=== PATIENT | male | born 1960 | race Hispanic/Latino ===

== ENCOUNTER 2019-08-28 09:59 | Day surgery (SDC) | payer BC ==
--- NOTE | 2019-08-25 14:30 | RAD REPORT ---
EXAM DESCRIPTION: Mario Sena And Reese (2 Views)08/25/2019 2:08 pm CLINICAL HISTORY: Preop for cardiac catheterization COMPARISON: None FINDINGS: The lungs appear clear of acute infiltrate. The heart is normal size Postsurgical changes involve the chest. IMPRESSION: No acute abnormalities displayed
[2019-08-25 14:42] LABS: Potassium 3.9 mmol/L (3.5-5.1)
[2019-08-25 14:48] LABS: Absolute Lymphocytes (CBC) 2.8 K/uL (0.7-4.9); Basophils % 0.9 % (0-1.3); Hematocrit 46.6 % (39.6-49.0); Lymphocytes % 34.1 % (15.3-44.8); RBC Red Blood Cell Count 5.43 M/uL (4.33-5.43)
[2019-08-25 15:32] LABS: Protime INR 0.92
[2019-08-28] MEDS ORDERED: NA CHLORIDE 0.9% 500 ML ONE (10:56)
[2019-08-28] MEDS ORDERED: ACETYLCYST 20% 800 MG/4 ML VIAL PO ONE (11:00)
[2019-08-28 11:57] VITALS: TEMP 97.2
[2019-08-28] MEDS ORDERED: HEPA 1000U/500MLS 2,000 UNIT/1,000 ML BAG IV ONE (12:08)
[2019-08-28] MEDS ORDERED: MIDAZOLAM HCL 2 MG/2 ML INJ ONE (12:09)
[2019-08-28] MEDS ORDERED: HEPARIN 5000 UNIT/ML 1 ML VIAL ONE (12:09)
[2019-08-28] MEDS ORDERED: ATROPINE SULF 1 MG/10 ML SYR IV ONE (12:10)
[2019-08-28] MEDS ORDERED: NICARDIPINE HCL 25 MG/10 ML IV ONE (12:10)
[2019-08-28] MEDS ORDERED: FENTANYL CITR 100 MCG/2 ML ONE (12:10)
--- OUTSIDE RECORDS SUMMARY | 2019-08-28 14:03 | XMS REPORT | Continuity of Care Document ---
:1960 Author Organization [facility] t Address [address] [place] [address] [address] [place] [address] Care Team Providers Name Role Phone Unavailable Unavailable Unavailable Payers Payer Name Policy Type Policy Number Effective Date Expiration Date S ource Problems This patient has no known problems. Allergies, Adverse Reactions, Alerts Allergy Allergy Status Severity Reaction(s) Onset Inactive Treating Comm ents Source Name Type Date Date Clinician No Known DA Active U 2010-03 [facility] Allergie 04-26 Clear s 00:00: [address] Medications This patient has no known medications. Procedures This patient has no known procedures. Results Test Description Test Time Test Comments Results Result Comments Source SURG 2018-07-27 12:56:00 --------RUN DATE: 07/27/18 [facility] - LAB *LIVE* PAGE 1 RUN TIME: 8366 Specimen Inquiry RUN USER: INTERFACE --------PATIENT: JAGDISH CHRISTENSEN V LOC: Messi U #: [id number] AGE/SX: 58/M ROOM: [facility] RE07/22/18REG DR: Tr Nj MD : 64 BED: 1 DIS: 07/23/18 STATUS: DIS Lexi TLOC: -------- SPEC #: [id number] RECD: 07/26/18 STATUS: SERA REQ #: [id number] PIOTR: 07/23/[address] [facility] [address]: Tr Nj MD ENTERED: 07/26/18 SP TYPE: SURG OTHR DR: No Primary or Family Physician Self Referred Surinder Montalvo MDORDERED: SURG PATH LVL 3 COPIES TO: No Primary [place] [address] [place] [address] [email or web address] [address] [address] [place] [address] HISTOLOGY: TISSUE ID BLK PCS MEGHNA LEV PROCEDURE DISPOSITION ____ ___ ___ ___ GALLBLADDER, NO A 1-2 1 PROCEDURES: SURG PATH LVL 3 (07/26/18) TISSUES: A. GALLBLADDER, NOS - GALLBLADDER CLINICAL HISTORY ABD PAIN CPT CODES CPT CODE(S): 02261 , , , , , , CONTINUED ON NEXT PAGE --------RUN DATE: 07/27/18 [facility] - LAB *LIVE* PAGE 2 RUN TIME: 1256 Specimen Inquiry RUN USER: INTERFACE --------SPEC #: [id number] PATIENT: JAGDISH CHRISTENSEN V #[id number] (Continued) FINAL DIAGNOSIS Gallbladder, laparoscopic cholecystectomy: MILD CHRONIC CHOLECYSTITIS WITH CHOLELITHIASIS GROSS DESCRIPTION Gallbladder. Received in formalin is a collapsed gallbladder, 8.5 x 2.7 x 2.0 cm with a wall, 0.3 cm in average thickness and a defect in the body extending to the gallbladder neck, 3.0 cm. The mucosa is brown-green, smooth and velvety. The lumen contains scanty bile and numerous black friable calculi, 2.0 x 1.7 x 0.3 cm in aggregate. Five additional similar calculi are present in the container measuring 1.0 x 0.7 x 0.3 cm in aggregate. Drop Wire Hanger section submitted as A. /ba/pdb Grossing performed at [facility] Pathology, [address] [facility], [address], [place] [address]. Design Printing Machine Setter: Finesse Fuentes M.D. MICROSCOPIC DESCRIPTION Gallbladder. Sections demonstrate gallbladder wall with glandular mucosa. Focal dilated Rokitansky-Aschoff sinuses are identified. There is mild patchy chronic inflammation in the wall of the gallbladder. There is no evidence of dysplasia or malignancy. /cm Signed SIGNATURE ON FILE Delores Arellano 07/27/18 1256 -------- END OF REPORT COMPREHENSIVE METABOLIC PANEL 2018-07-23 18:11:00 Test Item Value Reference Range Interpretation Comme nts SODIUM (test code = NA) 137 mmol/L 134-147 N POTASSIUM (test code = K) 4.4 mmol/L 3.4-5.0 N CHLORIDE (test code = CL) 107 mmol/L 100-108 N CARBON DIOXIDE (test code = CO2) 23 mmol/L 21-32 N ANION GAP (test code = GAP) 7.0 GAP calc 4.0-15.0 N GLUCOSE (test code = GLU) 239 MG/DL 70-110 H BLOOD UREA NITROGEN (test code = BUN) 10 MG/DL 7-18 N GLOMERULAR FILTRATION RATE (test code = GFR) >=60 max estimate estG FR >60 CREATININE (test code = CREAT) 1.3 MG/DL 0.8-1.3 N TOTAL PROTEIN (test code = PROT) 7.1 G/DL 6.4-8.2 N ALBUMIN (test code = ALB) 3.2 G/DL 3.4-5.0 L GLOBULIN (test code = GLOB) 3.9 GM/dL ALBUMIN/GLOBULIN RATIO (test code = A/G) 0.8 RATIO 1.2-2.2 L CALCIUM (test code = CA) 7.9 MG/DL 8.5-10.1 L BILIRUBIN TOTAL (test code = BILT) 1.20 MG/DL 0.2-1.2 N SGOT/AST (test code = AST) 91 Unit/L 15-37 H SGPT/ALT (test code = ALT) 139 Unit/L 12-78 H ALKALINE PHOSPHATASE TOTAL (test code = ALKP) 81 Unit/L 50-136 N GLUCOSE BEDSIDE [id number] 16:44:00 Test Item Value Reference Range Interpretation Comments GLUCOSE BEDSIDE TESTING (test code 147 mg/dL 70-110 H = GLUBED) CBC W/AUTO [id number] 16:07:00 Test Item Value Reference Range Interpretation Comments WHITE BLOOD CELL (test code = 8.3 K/mm3 3.5-11.0 N WBC) RED BLOOD CELL (test code = RBC) 4.92 M/mm3 4.70-6.10 N HEMOGLOBIN (test code = HGB) 14.0 G/DL 12.3-15.9 N HEMATOCRIT (test code = HCT) 41.5 % 35.8-46.7 N MEAN CELL VOLUME (test code = 84.3 Fl 86.3-98.9 L MCV) MEAN CELL HGB (test code = MCH) 28.5 pg 28.9-34.4 L MEAN CELL HGB CONCETRATION (test 33.7 G/DL 32.1-34.5 N code = MCHC) RED CELL DISTRIBUTION WIDTH (test 13.2 SD 11.5-14.5 N code = RDW) PLATELET COUNT (test code = PLT) 253.0 K/mm3 150-450 N MEAN PLATELET VOLUME (test code = 10.30 fL 7.0-9.6 H MPV) NEUTROPHIL % (test code = NT%) 67.6 % 40-76 LYMPHOCYTE % (test code = LY%) 21.1 % 20.5-51.1 N MONOCYTE % (test code = MO%) 8.0 % 1.7-9.3 N EOSINOPHIL % (test code = EO%) 2.7 % 0.0-6.0 N BASOPHIL % (test code = BA%) 0.6 % 0.0-2.0 N NEUTROPHIL # (test code = NT#) 5.59 K/mm3 1.8-7.6 N LYMPHOCYTE # (test code = LY#) 1.7 K/mm3 0.6-3.0 N MONOCYTE # (test code = MO#) 0.7 K/mm3 0.2-1.5 N EOSINOPHIL # (test code = EO#) 0.2 K/mm3 0.0-0.4 N BASOPHIL # (test code = BA#) 0.1 K/mm3 0.0-0.2 N MANUAL DIFF REQUIRED (test code = NO DIFF/SCN CRITERIA MDIFF) GLUCOSE BEDSIDE [id number] 13:00:00 Test Item Value Reference Range Interpretation Comments GLUCOSE BEDSIDE TESTING (test code 143 mg/dL 70-110 H = GLUBED) GLUCOSE BEDSIDE [id number] 10:06:00 Test Item Value Reference Range Interpretation Comments GLUCOSE BEDSIDE TESTING (test code 113 mg/dL 70-110 H = GLUBED) GLUCOSE BEDSIDE [id number] 07:51:00 Test Item Value Reference Range Interpretation Comments GLUCOSE BEDSIDE TESTING (test code 131 mg/dL 70-110 H = GLUBED) COMPREHENSIVE METABOLIC [id number] 07:11:00 Test Item Value Reference Range Interpretation Comments SODIUM (test code = NA) 141 mmol/L 134-147 N POTASSIUM (test code = 3.9 mmol/L 3.4-5.0 N K) CHLORIDE (test code = 110 mmol/L 100-108 H CL) CARBON DIOXIDE (test 25 mmol/L 21-32 N code = CO2) ANION GAP (test code = 6.0 GAP calc 4.0-15.0 N GAP) GLUCOSE (test code = 123 MG/DL 70-110 H GLU) BLOOD UREA NITROGEN 10 MG/DL 7-18 N (test code = BUN) GLOMERULAR FILTRATION >=60 max estimate >60 RATE (test code = GFR) estGFR CREATININE (test code = 1.3 MG/DL 0.8-1.3 N CREAT) TOTAL PROTEIN (test code 7.3 G/DL 6.4-8.2 N = PROT) ALBUMIN (test code = 3.5 G/DL 3.4-5.0 N ALB) GLOBULIN (test code = 3.8 GM/dL GLOB) ALBUMIN/GLOBULIN RATIO 0.9 RATIO 1.2-2.2 L (test code = A/G) CALCIUM (test code = CA) 8.3 MG/DL 8.5-10.1 L BILIRUBIN TOTAL (test 1.40 MG/DL 0.2-1.2 H code = BILT) SGOT/AST (test code = 102 Unit/L 15-37 H AST) SGPT/ALT (test code = 151 Unit/L 12-78 H ALT) ALKALINE PHOSPHATASE 99 Unit/L 50-136 N TOTAL (test code = ALKP) COMPREHENSIVE METABOLIC [id number] 06:59:00 Test Item Value Reference Range Interpretation Comments SODIUM (test code = NA) 141 mmol/L 134-147 N POTASSIUM (test code = K) 3.9 mmol/L 3.4-5.0 N CHLORIDE (test code = CL) 110 mmol/L 100-108 H CARBON DIOXIDE (test code = CO2) 25 mmol/L 21-32 N ANION GAP (test code = GAP) 6.0 GAP calc 4.0-15.0 N GLUCOSE (test code = GLU) 123 MG/DL 70-110 H BLOOD UREA NITROGEN (test code = 10 MG/DL 7-18 N BUN) GLOMERULAR FILTRATION RATE (test estGFR >60 code = GFR) CREATININE (test code = CREAT) MG/DL 0.8-1.3 TOTAL PROTEIN (test code = PROT) G/DL 6.4-8.2 ALBUMIN (test code = ALB) G/DL 3.4-5.0 GLOBULIN (test code = GLOB) GM/dL ALBUMIN/GLOBULIN RATIO (test RATIO 1.2-2.2 code = A/G) CALCIUM (test code = CA) 8.3 MG/DL 8.5-10.1 L BILIRUBIN TOTAL (test code = MG/DL 0.2-1.2 BILT) SGOT/AST (test code = AST) Unit/L 15-37 SGPT/ALT (test code = ALT) Unit/L 12-78 ALKALINE PHOSPHATASE TOTAL (test Unit/L 50-136 code = ALKP) CBC W/AUTO [id number] 06:53:00 Test Item Value Reference Range Interpretation Comments WHITE BLOOD CELL (test code = 8.3 K/mm3 3.5-11.0 N WBC) RED BLOOD CELL (test code = RBC) 4.92 M/mm3 4.70-6.10 N HEMOGLOBIN (test code = HGB) 14.0 G/DL 12.3-15.9 N HEMATOCRIT (test code = HCT) 41.5 % 35.8-46.7 N MEAN CELL VOLUME (test code = 84.3 Fl 86.3-98.9 L MCV) MEAN CELL HGB (test code = MCH) 28.5 pg 28.9-34.4 L MEAN CELL HGB CONCETRATION (test 33.7 G/DL 32.1-34.5 N code = MCHC) RED CELL DISTRIBUTION WIDTH (test 13.2 SD 11.5-14.5 N code = RDW) PLATELET COUNT (test code = PLT) 253.0 K/mm3 150-450 N MEAN PLATELET VOLUME (test code = 10.30 fL 7.0-9.6 H MPV) NEUTROPHIL % (test code = NT%) 67.6 % 40-76 LYMPHOCYTE % (test code = LY%) 21.1 % 20.5-51.1 N MONOCYTE % (test code = MO%) 8.0 % 1.7-9.3 N EOSINOPHIL % (test code = EO%) 2.7 % 0.0-6.0 N BASOPHIL % (test code = BA%) 0.6 % 0.0-2.0 N NEUTROPHIL # (test code = NT#) 5.59 K/mm3 1.8-7.6 N LYMPHOCYTE # (test code = LY#) 1.7 K/mm3 0.6-3.0 N MONOCYTE # (test code = MO#) 0.7 K/mm3 0.2-1.5 N EOSINOPHIL # (test code = EO#) 0.2 K/mm3 0.0-0.4 N BASOPHIL # (test code = BA#) 0.1 K/mm3 0.0-0.2 N MANUAL DIFF REQUIRED (test code = DIFF/SCN CRITERIA MDIFF) - XR CHEST 1 [id number] 23:12:00 Name: JAGDISH CHRISTENSEN V [facility] : 1960 Age/S: 58 / M [address] [facility] [place] Unit #: [id number] Loc: [place] [address] Phys: Tr Nj MD Acct: [id number] Dis Date: Status: ADM IN PHONE #: [phone] Exam Date: 07/22/2018 2300 FAX #: Reason: FOR SURGERY IN AM. EXAMS: CPT: [id number] XR CHEST 1 V 07749 Fluoro Time: DAP (Gy m2): Air Kerma (mGy): HISTORY: Chest pain. 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 There is mild cardiomegaly. No vascular congestion. The lungs are clear of f ocal consolidation. No effusion, pneumothorax, or acute osseous abnormality. IMPRESSION: 1. Heart size is upper normal. No focal consolidation. at 2312 Reported and signed by: Yovnai Chowdhury M.D. CC: Tr Nj MD PAGE 1 Signed Report Name: JAGDISH CHRISTENSEN [place] : 1960 Age/S: 58 / M [address] [address] [place] Unit #: [id number] Loc: [place] [address] Phys: Tr Nj MD Acct: [id number] Dis Date: Status: ADM IN PHONE #: [phone] Exam Date: 07/22/2018 2300 FAX #: Reason: FOR SURGERY IN AM. EXAMS: CPT: [id number] XR CHEST 1 V 27202 Fluoro Time: DAP (Gy m2): Air Kerma (mGy): <Continued> Technologist: Evelia Lucio RT(R)(CT) Trnscb Date/Time: 07/22/2018 (2312) [email or web address] Orig Print D/T: S: 07/22/2018 (2315) PAGE 2 Signed Report- CT ABD PELVIS [id number] 19:50:00 Name: JAGDISH CHRISTENSEN [place] [facility] : 1960 Age/S: 58 / M [address] [address] [place] Unit #: [id number] Loc: [place] [address] Phys: Tr Nj MD Acct: [id number] Dis Date: Status: ADM IN PHONE #: [phone] Exam Date: 07/22/20181927 FAX #: Reason: Abd pain EXAMS: CPT: [id number] CT ABD PELVIS W/CONT 15983 CT ABDOMEN AND PELVIS WITH IV CONTRAST HISTORY: Abd pain COMPARISON: MRI abdomen 03/08/11. TECHNIQUE: Axial CT images of the abdomen and pelvis were obtained with coronal and/or sagittal reformatted views. Automated exposure control, iterative reconstruction technique, and/or adjustment of mA and/or kV according to patient's size was utilized for radiation dose reduction. IV CONTRAST: 100 ml Isovue-300. PO CONTRAST: None. Location: B2. FINDINGS: Mild atelectasis present in both lung bases. The heart size is normal. Coronary artery calcifications. Epicardial pacemaker leads. Sternotomy wires. The gallbladder is distended. There are few small gallstones in theneck of the gallbladder. There may be a small amount of pericholecystic fluid and minimal inflammatory changes. Mild diffuse low attenuation seen throughout the liver suggestive of cyst steatosis. No focal hepatic lesion. Spleen, pancreas and adrenal glands are unremarkable. Both kidneys are similar in size, shape and enhancement without evidence of hydronephrosis. There are at least 3 nonobstructing right renal stones measuring up to 3 mm. No definite left renal stone. Urinary bladder is partially distended without wall thickening. The prostate is normal in size. No free air, free fluid or evidence of a bowel obstruction. Normal appendix. No bowel wall thickening. The aorta is normal in caliber with mild to moderate atherosclerotic disease. No abdominal or pelvic adenopathy. Mild lumbar spondylosis. IMPRESSION: PAGE 1 Signed Report (CONTINUED) Name: ZAIDHEATHER DILLONALICIA Lane [facility] : 1960 Age/S: 58 / M [address] [facility] [place] Unit #: [id number] Loc: [place] [address] Phys: Tr Nj MD Acct: [id number] Dis Date: Status: ADM IN PHONE #: [phone] Exam Date: 07/22/20181927 FAX #: Reason: Abd pain EXAMS: CPT: [id number] CT ABD PELVIS W/CONT 39870 <Continued> Cholelithiasis. Minimal inflammatorychanges and probable pericholecystic fluid concerning for acute cholecystitis. A right upper quadrant ultrasound may be helpful for further assessment. Normal appendix. Multiple nonobstructing right renal stones. at 1950 Reported and signed by: Liborio Box M.D. CC: Tr Nj MD Technologist:Dorian Escobedo, RT(R)(CT); .. CTDI: DLP: Trnscb Date/Time: 07/22/2018 (1949) [email or web address] Orig Print D/T: S: 07/22/2018 (1952) PAGE 2 Signed ReportLACTIC [id number] 18:23:00 Test Item Value Reference Range Interpretation Comments LACTIC ACID (test code = LACT) 1.4 mmol/L 0.4-2.0 N COMPREHENSIVE METABOLIC [id number] 18:09:00 Test Item Value Reference Range Interpretation Comments SODIUM (test code = NA) 141 mmol/L 134-147 N POTASSIUM (test code = 3.9 mmol/L 3.4-5.0 N K) CHLORIDE (test code = 110 mmol/L 100-108 H CL) CARBON DIOXIDE (test 26 mmol/L 21-32 N code = CO2) ANION GAP (test code = 5.0 GAP calc 4.0-15.0 N GAP) GLUCOSE (test code = 116 MG/DL 70-110 H GLU) BLOOD UREA NITROGEN 13 MG/DL 7-18 N (test code = BUN) GLOMERULAR FILTRATION >=60 max estimate >60 RATE (test code = GFR) estGFR CREATININE (test code = 1.3 MG/DL 0.8-1.3 N CREAT) TOTAL PROTEIN (test code 7.4 G/DL 6.4-8.2 N = PROT) ALBUMIN (test code = 3.6 G/DL 3.4-5.0 N ALB) GLOBULIN (test code = 3.8 GM/dL GLOB) ALBUMIN/GLOBULIN RATIO 1.0 RATIO 1.2-2.2 L (test code = A/G) CALCIUM (test code = CA) 8.4 MG/DL 8.5-10.1 L BILIRUBIN TOTAL (test 1.70 MG/DL 0.2-1.2 H code = BILT) SGOT/AST (test code = 130 Unit/L 15-37 H AST) SGPT/ALT (test code = 102 Unit/L 12-78 H ALT) ALKALINE PHOSPHATASE 76 Unit/L 50-136 N TOTAL (test code = ALKP) LIPID PROFILE (CORONARY RISK)2018-07-22 18:09:00 Test Item Value Reference Range Interpretation Comments TRIGLYCERIDES (test code = TRIG) 93 MG/DL 0-150 N CHOLESTEROL (test code = CHOL) 140 MG/DL 133-200 N CHOLESTEROL/HDL RATIO (test code = 2.50 RATIO >0 CHOLHDL) HDL CHOLESTEROL (test code = HDL) 56 MG/DL 40-59 N NON-HDL CHOLESTEROL (test code = 84 mg/dL <130 NHDL) LIPOPROTEIN LDL (test code = LDL) 69 MG/DL 0-129 N LDL/HDL (test code = LDL/HDL) 1.23 Ratio 1.48-3.22 Avg L [id number] 18:09:00 Test Item Value Reference Range Interpretation Comments PHOSPHOROUS (test code = PHOS) 2.5 MG/DL 2.5-4.9 N RULE OUT AL [id number] 18:09:00 Test Item Value Reference Range Interpretation Comments CREATINE KINASE 179 Unit/L 26-192 N (CK) (test code = CK) TROPONIN-I (test < 0.015 NG/ML 0.000-0.045 N Negative: </= 0.045 code = TROPI) Positive: >/= 0.046 Correlation wit h serial results, other cardiac markers , and clinical findin gs is necessary to de termine the clinical significance of this result. Quantit ative results using different methodologies s hould not be compared to one another as nume rical results may dustin yby method. [id number] 18:09:00 Test Item Value Reference Range Interpretation Comments LIPASE (test code = LIP) 457 Unit/L 114-286 H [id number] 18:09:00 Test Item Value Reference Range Interpretation Comments MAGNESIUM (test code = MAG) 2.0 MG/DL 1.8-2.4 N COMPREHENSIVE METABOLIC [id number] 18:05:00 Test Item Value Reference Range Interpretation Comments SODIUM (test code = NA) 141 mmol/L 134-147 N POTASSIUM (test code = K) 3.9 mmol/L 3.4-5.0 N CHLORIDE (test code = CL) 110 mmol/L 100-108 H CARBON DIOXIDE (test code = CO2) 26 mmol/L 21-32 N ANION GAP (test code = GAP) 5.0 GAP calc 4.0-15.0 N GLUCOSE (test code = GLU) 116 MG/DL 70-110 H BLOOD UREA NITROGEN (test code = 13 MG/DL 7-18 N BUN) GLOMERULAR FILTRATION RATE (test estGFR >60 code = GFR) CREATININE (test code = CREAT) MG/DL 0.8-1.3 TOTAL PROTEIN (test code = PROT) G/DL 6.4-8.2 ALBUMIN (test code = ALB) G/DL 3.4-5.0 GLOBULIN (test code = GLOB) GM/dL ALBUMIN/GLOBULIN RATIO (test RATIO 1.2-2.2 code = A/G) CALCIUM (test code = CA) 8.4 MG/DL 8.5-10.1 L BILIRUBIN TOTAL (test code = MG/DL 0.2-1.2 BILT) SGOT/AST (test code = AST) Unit/L 15-37 SGPT/ALT (test code = ALT) Unit/L 12-78 ALKALINE PHOSPHATASE TOTAL (test Unit/L 50-136 code = ALKP) LIPID PROFILE (CORONARY RISK)2018-07-22 18:05:00 Test Item Value Reference Range Interpretation Comments TRIGLYCERIDES (test code = TRIG) MG/DL 0-150 CHOLESTEROL (test code = CHOL) MG/DL 133-200 CHOLESTEROL/HDL RATIO (test code = RATIO >0 CHOLHDL) HDL CHOLESTEROL (test code = HDL) MG/DL 40-59 NON-HDL CHOLESTEROL (test code = NHDL) mg/dL <130 LIPOPROTEIN LDL (test code = LDL) MG/DL 0-129 LDL/HDL (test code = LDL/HDL) Ratio 1.48-3.22 Avg [id number] 18:05:00 Test Item Value Reference Range Interpretation Comments PHOSPHOROUS (test code = PHOS) MG/DL 2.5-4.9 RULE OUT AL [id number] 18:05:00 Test Item Value Reference Range Interpretation Comments CREATINE KINASE (CK) (test code = CK) Unit/L 26-192 TROPONIN-I (test code = TROPI) NG/ML 0.000-0.045 [id number] 18:05:00 Test Item Value Reference Range Interpretation Comments LIPASE (test code = LIP) Unit/L 114-286 [id number] 18:05:00 Test Item Value Reference Range Interpretation Comments MAGNESIUM (test code = MAG) MG/DL 1.8-2.4 PROTHROMBIN [id number] 17:54:00 Test Item Value Reference Range Interpretation Comments PT PATIENT (test code = PTP) 11.2 SECONDS 9.3-12.9 N INTERNATIONAL NORMAL RATIO 0.97 INR Unit 0.8-1.2 N (test code = INR) CBC W/AUTO [id number] 17:48:00 Test Item Value Reference Range Interpretation Comments WHITE BLOOD CELL (test code = 9.0 K/mm3 3.5-11.0 N WBC) RED BLOOD CELL (test code = RBC) 5.10 M/mm3 4.70-6.10 N HEMOGLOBIN (test code = HGB) 14.5 G/DL 12.3-15.9 N HEMATOCRIT (test code = HCT) 43.4 % 35.8-46.7 N MEAN CELL VOLUME (test code = 85.1 Fl 86.3-98.9 L MCV) MEAN CELL HGB (test code = MCH) 28.4 pg 28.9-34.4 L MEAN CELL HGB CONCETRATION (test 33.4 G/DL 32.1-34.5 N code = MCHC) RED CELL DISTRIBUTION WIDTH (test 13.0 SD 11.5-14.5 N code = RDW) PLATELET COUNT (test code = PLT) 274.0 K/mm3 150-450 N MEAN PLATELET VOLUME (test code = 10.50 fL 7.0-9.6 H MPV) NEUTROPHIL % (test code = NT%) 75.7 % 40-76 N LYMPHOCYTE % (test code = LY%) 16.5 % 20.5-51.1 L MONOCYTE % (test code = MO%) 6.9 % 1.7-9.3 N EOSINOPHIL % (test code = EO%) 0.6 % 0.0-6.0 N BASOPHIL % (test code = BA%) 0.3 % 0.0-2.0 N NEUTROPHIL # (test code = NT#) 6.80 K/mm3 1.8-7.6 N LYMPHOCYTE # (test code = LY#) 1.5 K/mm3 0.6-3.0 N MONOCYTE # (test code = MO#) 0.6 K/mm3 0.2-1.5 N EOSINOPHIL # (test code = EO#) 0.1 K/mm3 0.0-0.4 N BASOPHIL # (test code = BA#) 0.0 K/mm3 0.0-0.2 N MANUAL DIFF REQUIRED (test code = NO DIFF/SCN CRITERIA MDIFF)
[2019-08-28 14:44] VITALS: BP 122/73
[2019-08-28 15:14] VITALS: O2SAT 99
--- NOTE | 2019-08-29 22:50 | OP ---
Date of Procedure: 08/28/2019 Surgeon: HUSSAIN YOUNG Procedure Performed: 1.Selective coronary angiogram. 2.Bypass graft study. 3.Left heart catheterization. Access: Right femoral artery 6-[place]er closed with 6-[place] Angio-Seal. Indication For The Procedure: 1.Unstable angina. 2.Dyspnea on exertion. Anesthesia: Total sedation time was 35 minutes. Description Of Procedure: Patient was brought into the cardiac catheterization laboratory, prepped a nd draped in the usual sterile fashion. Then using incremental doses of fentanyl and Versed, adequat e amount of sedation was achieved. Then, we took a micropuncture sheath under the ultrasound guidanc e and fluoroscopy guidance. Right common femoral artery was accessed and then we exchanged to 6-Fren ch pinnacle sheath and then we took a 6-[place] JL4 catheter into the aortic root over a J-wire, engag ed left main, took the standard view pictures and then we took a 6-[place] JR4 catheter into the aorti c root engaged the right coronary artery and the SVG grafts and the FROST and then took all catheters and sheath out and closed the site with a 6-[place] Angio-Seal with good hemostasis. No complications . Findings: 1.Left main is moderate size without significant disease. 2.LAD has severe ywhtltkk-rp-ucp disease with mid total occlusion. 3.Umjslayr-re-lygwse diffuse disease of D1 branch. 4.Patent FROST to LAD. 5.Patent SVG to D3. 6.Severe proximal OM branch disease. 7.Patent SVG to the OM branch. 8.Severe diffuse left circumflex disease, but it is a very small vessel. 9.Diffuse klgk-cg-pemmmeia distal LAD disease and its small vessel. 10.Severe proximal RCA with proximal total occlusion of the RCA. 11.Patent SVG to the RCA. 12.Patent FROST to LAD. 13.Txme-yp-wngaybqi diffuse PDA disease distally. 14.LVEDP of 16 mmHg. The LVEDP was measured by advancing the JR4 catheter over the J-wire into the LV. LVEDP was recorded and then upon pullback there was no difference in pressure. Conclusion: 1.Severe sen[place] coronary artery disease as outlined above with severe diffuse bypassed arteries. 2.All 4 grafts are patent including SVG to D3, SVG to OM, SVG to distal RCA, and FROST to LAD. Recommendation: 1.Aggressive medical management of coronary artery disease. 2.Discharge home once discharge criteria are met. /TORI Voice ID: [id number] Report ID: [id number]
== END 2019-08-28 13:25 | disposition home or self-care (01) ==
LOC: CCL 09:59
DX: I25.110 Atherosclerotic heart disease of native coronary artery with unstable angina pectoris (principal); I25.82 Chronic total occlusion of coronary artery; Z11.59 Encounter for screening for other viral diseases; I10 Essential (primary) hypertension; E78.5 Hyperlipidemia, unspecified; E11.9 Type 2 diabetes mellitus without complications; Z95.1 Presence of aortocoronary bypass graft; Z79.82 Long term (current) use of aspirin; Z87.891 Personal history of nicotine dependence
CPT/HCPCS: 85025; 80048; 36415; 85610; 82947; 85730; 71046; 93459; U0002; C1893; C1760; J2250; J3010; J7040; 93458; J1644

== ENCOUNTER 2020-07-26 03:14 | Emergency (ER) | payer BC, SELFPAY ==
--- OUTSIDE RECORDS SUMMARY | 2020-07-26 03:17 | XMS REPORT | Continuity of Care Document ---
:1960 Author Organization [facility] t Address [address] [place] [address] [address] [place] [address] Care Team Providers Name Role Phone Unavailable Unavailable Unavailable Payers Payer Name Policy Type Policy Number Effective Date Expiration Date S ource Problems This patient has no known problems. Allergies, Adverse Reactions, Alerts Allergy Allergy Status Severity Reaction(s) Onset Inactive Treating Comm ents Source Name Type Date Date Clinician No Known DA Active U 2010-03 [facility] Allergie 04-26 Clear s 00:00: [address] Medications This patient has no known medications. Procedures This patient has no known procedures. Results Test Description Test Time Test Comments Results Result Comments Source SURG 2018-07-27 12:56:00 --------RUN DATE: 07/27/18 [facility] - LAB *LIVE* PAGE 1 RUN TIME: 8676 Specimen Inquiry RUN USER: INTERFACE --------PATIENT: JAGDISH CHRISTENSEN V LOC: Messi U #: [id number] AGE/SX: 58/M ROOM: [facility] RE07/22/18REG DR: Tr Nj MD : 64 BED: 1 DIS: 07/23/18 STATUS: DIS Lexi TLOC: -------- SPEC #: [id number] RECD: 07/26/18 STATUS: DEYANorris REQ #: [id number] PIOTR: 07/23/[address] [facility] [address]: Tr Nj MD ENTERED: 07/26/18 SP TYPE: SURG OTHR DR: No Primary or Family Physician Self Referred Surinder Montalvo MDORDERED: SURG PATH LVL 3 COPIES TO: No Primary [place] [address] [place] [address] [email or web address] [address] [place] [address] HISTOLOGY: TISSUE ID BLK PCS MEGHNA LEV PROCEDURE DISPOSITION ____ ___ ___ ___ GALLBLADDER, NO A 1-2 1 PROCEDURES: SURG PATH LVL 3 (07/26/18) TISSUES: A. GALLBLADDER, NOS - GALLBLADDER CLINICAL HISTORY ABD PAIN CPT CODES CPT CODE(S): 88871 , , , , , , CONTINUED ON NEXT PAGE --------RUN DATE: 07/27/18 [facility] - LAB *LIVE* PAGE 2 RUN TIME: 1256 Specimen Inquiry RUN USER: INTERFACE --------SPEC #: [id number] PATIENT: JAGDISH CHRISTENSEN V #[id number] (Continued) FINAL DIAGNOSIS Gallbladder, laparoscopic cholecystectomy: MILD [...] x 0.7 x 0.3 cm in aggregate. Black And White Printer Operator section submitted as A. /ba/pdb Grossing performed at [facility] Pathology, [facility], [address], [place] [address]. Staple Fiber Washer: Finesse Fuentes M.D. MICROSCOPIC DESCRIPTION Gallbladder. Sections demonstrate gallbladder wall with glandular mucosa. Focal dilated Rokitansky-Aschoff sinuses are identified. There is mild patchy chronic inflammation in the wall of the gallbladder. There is no evidence of dysplasia or malignancy. /cm Signed SIGNATURE ON Delores Gibson 07/27/18 1256 -------- END OF REPORT COMPREHENSIVE [...] ALKP) 81 Unit/L 50-136 N GLUCOSE BEDSIDE [id number] 16:44:00 Test Item Value Reference Range Interpretation Comments GLUCOSE BEDSIDE TESTING (test code 147 mg/dL 70-110 H = GLUBED) CBC W/AUTO [id number] 16:07:00 Test Item Value Reference Range Interpretation [...] = NO DIFF/SCN CRITERIA MDIFF) GLUCOSE BEDSIDE [id number] 13:00:00 Test Item Value Reference Range Interpretation Comments GLUCOSE BEDSIDE TESTING (test code 143 mg/dL 70-110 H = GLUBED) GLUCOSE BEDSIDE [id number] 10:06:00 Test Item Value Reference Range Interpretation Comments GLUCOSE BEDSIDE TESTING (test code 113 mg/dL 70-110 H = GLUBED) GLUCOSE BEDSIDE [id number] 07:51:00 Test Item Value Reference Range Interpretation Comments GLUCOSE BEDSIDE TESTING (test code 131 mg/dL 70-110 H = GLUBED) COMPREHENSIVE METABOLIC [id number] 07:11:00 Test Item Value Reference Range Interpretation [...] TOTAL (test code = ALKP) COMPREHENSIVE METABOLIC [id number] 06:59:00 Test Item Value Reference Range Interpretation [...] Unit/L 50-136 code = ALKP) CBC W/AUTO [id number] 06:53:00 Test Item Value Reference Range Interpretation [...] DIFF/SCN CRITERIA MDIFF) - XR CHEST 1 [id number] 23:12:00 Name: JAGDISH CHRISTENSEN V [facility] located [facility] : 1960 Age/S: 58 / M [address] [facility] [place] Unit #: [id number] Loc: [place] [address] Phys: Tr Nj MD Acct: [id number] Dis Date: Status: ADM IN PHONE #: [phone] Exam Date: 07/22/2018 2300 FAX #: Reason: FOR SURGERY IN AM. EXAMS: CPT: [id number] XR CHEST 1 V 52969 Fluoro Time: DAP (Gy m2): Air Kerma (mGy): HISTORY: Chest pain. 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 There is mild cardiomegaly. No vascular congestion. The lungs are clear of f ocal consolidation. No effusion, pneumothorax, or acute osseous abnormality. IMPRESSION: 1. Heart size is upper normal. No focal consolidation. at 2312 Reported and signed by: Yovani Chowdhury M.D. CC: Tr Nj MD PAGE 1 Signed Report Name: JAGDISH CHRISTENSEN [place] : 1960 Age/S: 58 / M [address] [address] [place] Unit #: [id number] Loc: [place] [address] Phys: Tr jN MD Acct: [id number] Dis Date: Status: ADM IN PHONE #: [phone] Exam Date: 07/22/2018 2300 FAX #: Reason: FOR SURGERY IN AM. EXAMS: CPT: [id number] XR CHEST 1 V 26287 Fluoro Time: DAP (Gy m2): Air Kerma (mGy): <Continued> Technologist: Evelia Lucio RT(R)(CT) Trnscb Date/Time: 07/22/2018 (2312) [email or web address] Orig Print D/T: S: 07/22/2018 (2315) PAGE 2 Signed Report- CT ABD PELVIS [id number] 19:50:00 Name: JAGDISH CHRISTENSEN [place] : 1960 Age/S: 58 / M [address] [address] Unit #: [id number] Loc: [place] [address] Phys: Tr Nj MD Acct: [id number] Dis Date: Status: ADM IN PHONE #: [phone] Exam Date: 07/22/20181927 FAX #: Reason: Abd pain EXAMS: CPT: [id number] CT ABD PELVIS W/CONT 41709 CT ABDOMEN AND PELVIS WITH IV CONTRAST [...] IMPRESSION: PAGE 1 Signed Report (CONTINUED) Name: JAGDISH CHRISTENSEN [address] [facility] : 1960 Age/S: 58 / M [address] [address] Unit #: [id number] Loc: [place] [address] Phys: Tr Nj MD Acct: [id number] Dis Date: Status: ADM IN PHONE #: [phone] Exam Date: 07/22/20181927 FAX #: Reason: Abd pain EXAMS: CPT: [id number] CT ABD PELVIS W/CONT 15668 <Continued> Cholelithiasis. Minimal inflammatorychanges and probable pericholecystic [...] S: 07/22/2018 (1952) PAGE 2 Signed ReportLACTIC [id number] 18:23:00 Test Item Value Reference Range Interpretation Comments LACTIC ACID (test code = LACT) 1.4 mmol/L 0.4-2.0 N COMPREHENSIVE METABOLIC [id number] 18:09:00 Test Item Value Reference Range Interpretation [...] = LDL/HDL) 1.23 Ratio 1.48-3.22 Avg L [id number] 18:09:00 Test Item Value Reference Range Interpretation Comments PHOSPHOROUS (test code = PHOS) 2.5 MG/DL 2.5-4.9 N RULE OUT NV [id number] 18:09:00 Test Item Value Reference Range Interpretation [...] nume rical results may dustin yby method. [id number] 18:09:00 Test Item Value Reference Range Interpretation Comments LIPASE (test code = LIP) 457 Unit/L 114-286 H [id number] 18:09:00 Test Item Value Reference Range Interpretation Comments MAGNESIUM (test code = MAG) 2.0 MG/DL 1.8-2.4 N COMPREHENSIVE METABOLIC [id number] 18:05:00 Test Item Value Reference Range Interpretation [...] (test code = LDL/HDL) Ratio 1.48-3.22 Avg [id number] 18:05:00 Test Item Value Reference Range Interpretation Comments PHOSPHOROUS (test code = PHOS) MG/DL 2.5-4.9 RULE OUT NV [id number] 18:05:00 Test Item Value Reference Range Interpretation Comments CREATINE KINASE (CK) (test code = CK) Unit/L 26-192 TROPONIN-I (test code = TROPI) NG/ML 0.000-0.045 [id number] 18:05:00 Test Item Value Reference Range Interpretation Comments LIPASE (test code = LIP) Unit/L 114-286 [id number] 18:05:00 Test Item Value Reference Range Interpretation Comments MAGNESIUM (test code = MAG) MG/DL 1.8-2.4 PROTHROMBIN [id number] 17:54:00 Test Item Value Reference Range Interpretation Comments PT PATIENT (test code = PTP) 11.2 SECONDS 9.3-12.9 N INTERNATIONAL NORMAL RATIO 0.97 INR Unit 0.8-1.2 N (test code = INR) CBC W/AUTO [id number] 17:48:00 Test Item Value Reference Range Interpretation [...]
[2020-07-26 04:05] LABS: Urine Blood 2+ (Negative); Urine Glucose Negative (Negative); Urine Protein Trace (Negative); Urine Specific Gravity >=1.030 (1.005-1.030)
[2020-07-26 04:54] LABS: Urine Bacteria <20 /HPF (NONE SEEN); Urine RBC 20-50 /HPF (NONE SEEN)
[2020-07-26 04:56] LABS: Absolute Lymphocytes (CBC) 2.2 K/uL (0.7-4.9); Basophils % 0.8 % (0-1.3); Hematocrit 42.5 % (39.6-49.0); Lymphocytes % 19.1 % (15.3-44.8); MPV 9.1 fL (7.6-11.3); RBC Red Blood Cell Count 5.12 M/uL (4.33-5.43)
[2020-07-26 05:21] LABS: Bilirubin Direct 0.2 mg/dL (0-0.2); Bilirubin Total 0.9 mg/dL (0.2-1.0); Protein, Total 8.1 g/dL (6.4-8.2)
[2020-07-26] MEDS ORDERED: MORPHINE 4 MG/ML SYR ONE (05:24)
[2020-07-26] MEDS ORDERED: ONDANSETRON 4 MG/2 ML VIAL ONE (05:25)
[2020-07-26] MEDS ORDERED: NA CHLORIDE 0.9% 1,000 ML ONE (06:17)
--- NOTE | 2020-07-26 06:30 | ER ---
Nurse's Notes [facility] Name: Ivory Chery Age: 60 yrs Sex: Male : 1960 Arrival Date: 07/26/2020 Time: 03:18 Bed 3 Private MD: Diagnosis: Ureterolithiasis Presentation: 07/26 03:57 Chief complaint: Patient states: he has been having right flank pain radiating to his bb abdomen for several days the pain went away for a while but now it is back denies vomiting, diarrhea. Coronavirus screen: At this time, the client does not indicate any symptoms associated with coronavirus-19. Ebola Screen: No symptoms or risks identified at this time. Initial Sepsis Screen: Does the patient meet any 2 criteria? No. Patient's initial sepsis screen is negative. Does the patient have a suspected source of infection? No. Patient's initial sepsis screen is negative. Risk Assessment: Do you want to hurt yourself or someone else? Patient reports no desire to harm self or others. Onset of symptoms was July 22, 2020. 03:57 Method Of Arrival: Ambulatory 03:57 Acuity: TRENT 3 bb Historical: - Allergies: 04:04 No Known Allergies; bb - Home Meds: 04:04 losartan oral oral [Active]; Metformin Oral [Active]; atorvastatin oral oral [Active]; bb Allopurinol Oral [Active]; Metoprolol Tartrate Oral [Active]; Glipizide Oral [Active]; - PMHx: 04:04 Hyperlipidemia; Hypertension; CAD; Diabetes - NIDDM; Gout; bb - PSHx: 04:04 CABG; Heart cath; Cholecystectomy; bb - Immunization history:: Adult Immunizations up to date. - Social history:: Smoking status: Patient denies any tobacco usage or history of. Patient uses alcohol, occasionally. Patient/guardian denies using street drugs. Screenin:04 Abuse screen: Denies threats or abuse. Denies injuries from another. Nutritional rr5 screening: No deficits noted. Tuberculosis screening: No symptoms or risk factors identified. Fall Risk IV access (20 points). Total Garcia Fall Scale indicates No Risk (0-24 pts). Assessment: 04:00 General: Appears in no apparent distress. uncomfortable, Behavior is calm, cooperative, rr5 appropriate for age. 04:00 Pain: Complains of pain in right flank Pain radiates to abdomen Pain currently is 8 out rr5 of 10 on a pain scale. Quality of pain is described as aching, Pain began gradually, Is intermittent. Neuro: Level of Consciousness is awake, alert, obeys commands, Oriented to person, place, time. Cardiovascular: Capillary refill < 3 seconds Patient's skin is warm and dry. Respiratory: Airway is patent Respiratory effort is even, unlabored, Respiratory pattern is regular, symmetrical. GI: Abdomen is round non-distended, Reports lower abdominal pain, upper abdominal pain. : Reports pain in right flank(s). EENT: No signs and/or symptoms were reported regarding the EENT system. Derm: Skin is intact, is healthy with good turgor, Skin temperature is warm. Musculoskeletal: Capillary refill < 3 seconds. 04:50 Reassessment: Patient appears in no apparent distress at this time. No changes from rr5 previously documented assessment. Patient is alert, oriented x 3, equal unlabored respirations, skin warm/dry/pink. awaiting to be seen. 06:01 Reassessment: Patient appears in no apparent distress at this time. Patient is alert, rr5 oriented x 3, equal unlabored respirations, skin warm/dry/pink. Patient states symptoms have improved. Pain: Pain currently is 3 out of 10 on a pain scale. Vital Signs: 03:57 BP 151 / 106; Pulse 98; Resp 16 S; Temp 98(O); Pulse Ox 99% on R/A; Weight 81.65 kg bb (R); Height 5 ft. 6 in. (167.64 cm) (R); Pain 9/10; 05:20 BP 142 / 70; Pulse 89; Resp 17; Pulse Ox 99% ; rr5 06:00 BP 155 / 95; Pulse 95; Resp 17; Pulse Ox 99% ; rr5 06:54 BP 147 / 85; Pulse 90; Resp 19; Pulse Ox 98% ; rr5 03:57 Body Mass Index 29.05 (81.65 kg, 167.64 cm) ED Course: 03:18 Patient arrived in ED. es 03:50 Matt Zuniga RN is Primary Nurse. rr5 03:59 Triage completed. bb 04:01 Norberto Chan MD is Attending Physician. mh7 04:04 No provider procedures requiring assistance completed. rr5 04:04 Arm band placed on Patient placed in an exam room, on a stretcher, on pulse oximetry. bb 04:05 Patient has correct armband on for positive identification. Bed in low position. Call rr5 light in reach. Pulse ox on. NIBP on. 04:20 Inserted saline lock: 20 gauge in left antecubital area, using aseptic technique. Blood rr5 collected. 04:30 Urine collected: clean catch specimen, clear. rr5 05:26 CT Stone Protocol In Process Unspecified. EDMS 06:28 Kevin Sarkar MD is Referral Physician. mh7 06:55 IV discontinued, intact, bleeding controlled, No redness/swelling at site. Pressure rr5 dressing applied. Administered Medications: 05:10 Drug: Zofran (Ondansetron) 4 mg Route: IVP; Site: left antecubital; rr5 06:00 Follow up: Response: No adverse reaction rr5 05:12 Drug: morphine 4 mg {Note: rass 0.} Route: IVP; Site: left antecubital; rr5 06:00 Follow up: Response: No adverse reaction; RASS: Alert and Calm (0) rr5 05:59 Drug: NS 0.9% 1000 ml Route: IV; Rate: 1000 ml; Site: left antecubital; rr5 06:53 Follow up: Response: No adverse reaction; IV Status: Completed infusion; IV Intake: rr5 1000ml Intake: 06:53 IV: 1000ml; Total: 1000ml. rr5 Outcome: 06:29 Discharge ordered by . 7 06:55 Discharged to home ambulatory. rr5 06:55 Condition: stable 06:55 Discharge instructions given to patient, Instructed on discharge instructions, follow up and referral plans. medication usage, Demonstrated understanding of instructions, follow-up care, medications, Prescriptions given X 4. 06:55 Patient left the ED. rr5 Signatures: Dispatcher [employer] Jessica Dent Brenda, RN RN Matt Schneider RN RN rr5 Norberto Chan MD MD 7
--- NOTE | 2020-07-26 06:30 | EDPHYS ---
Physician Documentation [facility] Name: Ivory Chery Age: 60 yrs Sex: Male : 1960 Arrival Date: 07/26/2020 Time: 03:18 Bed 3 Private MD: ED Physician Norberto Chan HPI: 07/26 06:26 This 60 yrs old Male presents to ER via Ambulatory with complaints of Back mh7 Pain. 06:27 The patient complains of pain in the right flank. The pain radiates to the abdomen. mh7 Onset: The symptoms/episode began/occurred 3 day(s) ago. 07:35 Modifying factors: The symptoms are alleviated by nothing. the symptoms are aggravated mh7 by movement, palpation/percussion. Associated signs and symptoms: Pertinent positives: nausea, Pertinent negatives: diarrhea, dizziness, dysuria, fever, urinary frequency, headache, hematuria, pain radiating to the lower extremities, vomiting. Severity of pain: At its worst the pain was moderate today, in the emergency department the pain is unchanged. Historical: - Allergies: 04:04 No Known Allergies; bb - Home Meds: 04:04 losartan oral oral [Active]; Metformin Oral [Active]; atorvastatin oral oral [Active]; bb Allopurinol Oral [Active]; Metoprolol Tartrate Oral [Active]; Glipizide Oral [Active]; - PMHx: 04:04 Hyperlipidemia; Hypertension; CAD; Diabetes - NIDDM; Gout; bb - PSHx: 04:04 CABG; Heart cath; Cholecystectomy; bb - Immunization history:: Adult Immunizations up to date. - Social history:: Smoking status: Patient denies any tobacco usage or history of. Patient uses alcohol, occasionally. Patient/guardian denies using street drugs. ROS: 07:35 Constitutional: Negative for fever, chills, and weight loss, Eyes: Negative for injury, mh7 pain, redness, and discharge, ENT: Negative for injury, pain, and discharge, Neck: Negative for injury, pain, and swelling, Cardiovascular: Negative for chest pain, palpitations, and edema, Respiratory: Negative for shortness of breath, cough, wheezing, and pleuritic chest pain, : Negative for injury, bleeding, discharge, and swelling, MS/Extremity: Negative for injury and deformity, Skin: Negative for injury, rash, and discoloration, Neuro: Negative for headache, weakness, numbness, tingling, and seizure, Psych: Negative for depression, anxiety, suicide ideation, homicidal ideation, and hallucinations, Allergy/Immunology: Negative for hives, rash, and allergies, Endocrine: Negative for neck swelling, polydipsia, polyuria, polyphagia, and marked weight changes, Hematologic/Lymphatic: Negative for swollen nodes, abnormal bleeding, and unusual bruising. Exam: 07:35 Constitutional: This is a well developed, well nourished patient who is awake, alert, mh7 and in no acute distress. Head/Face: Normocephalic, atraumatic. Eyes: Pupils equal round and reactive to light, extra-ocular motions intact. Lids and lashes normal. Conjunctiva and sclera are non-icteric and not injected. Cornea within normal limits. Periorbital areas with no swelling, redness, or edema. Neck: Trachea midline, no thyromegaly or masses palpated, and no cervical lymphadenopathy. Supple, full range of motion without nuchal rigidity, or vertebral point tenderness. No Meningismus. Chest/axilla: Normal chest wall appearance and motion. Nontender with no deformity. No lesions are appreciated. Cardiovascular: Regular rate and rhythm with a normal S1 and S2. No gallops, murmurs, or rubs. Normal PMI, no JVD. No pulse deficits. Respiratory: Lungs have equal breath sounds bilaterally, clear to auscultation and percussion. No rales, rhonchi or wheezes noted. No increased work of breathing, no retractions or nasal flaring. 07:35 Skin: Warm, dry with normal turgor. Normal color with no rashes, no lesions, and no evidence of cellulitis. MS/ Extremity: Pulses equal, no cyanosis. Neurovascular intact. Full, normal range of motion. Neuro: Awake and alert, GCS 15, oriented to person, place, time, and situation. Cranial nerves II-XII grossly intact. Motor strength 5/5 in all extremities. Sensory grossly intact. Cerebellar exam normal. Normal gait. Psych: Awake, alert, with orientation to person, place and time. Behavior, mood, and affect are within normal limits. 07:35 Abdomen/GI: Inspection: abdomen appears normal, Bowel sounds: normal, in all quadrants, Palpation: mild abdominal tenderness, in the right lower quadrant, mass, is not appreciated, rebound tenderness, is not appreciated, voluntary guarding, is not appreciated, involuntary guarding, is not appreciated, no appreciated organomegaly, Rectal exam: the exam is deferred, because of patient request, Indicators: McBurney's point is not tender, Lopez's sign is negative, Rovsing's sign is negative, Obturator sign is negative, Psoas sign is negative, Liver: no appreciated palpable abnormalities, Hernia: not appreciated. 07:35 Back: ROM is normal spinal alignment noted, CVA tenderness, that is mild, is noted on the right, vertebral tenderness, is not appreciated, muscle spasm, is not present. Vital Signs: 03:57 BP 151 / 106; Pulse 98; Resp 16 S; Temp 98(O); Pulse Ox 99% on R/A; Weight 81.65 kg bb (R); Height 5 ft. 6 in. (167.64 cm) (R); Pain 9/10; 05:20 BP 142 / 70; Pulse 89; Resp 17; Pulse Ox 99% ; rr5 06:00 BP 155 / 95; Pulse 95; Resp 17; Pulse Ox 99% ; rr5 06:54 BP 147 / 85; Pulse 90; Resp 19; Pulse Ox 98% ; rr5 03:57 Body Mass Index 29.05 (81.65 kg, 167.64 cm) bb MDM: 06:27 Differential diagnosis: nephrolithiasis, pyelonephritis, UTI, diverticulitis. Data [facility] reviewed: vital signs, nurses notes, lab test result(s), CBC, electrolytes, urinalysis. Data interpreted: Pulse oximetry: on room air is 99 %. Interpretation: normal. Counseling: I had a detailed discussion with the patient and/or guardian regarding: the historical points, exam findings, and any diagnostic results supporting the discharge/admit diagnosis, the presence of at least one elevated blood pressure reading (>120/80) during this emergency department visit, lab results, radiology results, the need for outpatient follow up, a urologist, to return to the emergency department if symptoms worsen or persist or if there are any questions or concerns that arise at home. Response to treatment: the patient's symptoms have resolved after treatment, the patient's blood pressure is in an acceptable range, mental status has returned to baseline, the patient no longer shows bradycardia, the patient is not short of breath, the patient is not tachycardic, the patient's pain is gone, the patient's temperature has normalized. 06:29 Patient medically screened. [facility] 07/26 04:04 Order name: Urine Dipstick-Ancillary; Complete Time: 05:07 [facility] 07/26 04:09 Order name: Urine Microscopic Only; Complete Time: 05:07 [facility] 07/26 04:09 Order name: Basic Metabolic Panel; Complete Time: 06:21 [facility] 07/26 04:09 Order name: CBC with Diff; Complete Time: 05:07 [facility] 07/26 04:09 Order name: Hepatic Function; Complete Time: 06:21 [facility] 07/26 04:09 Order name: Lipase; Complete Time: 06:21 [facility] 07/26 04:09 Order name: Urine Dipstick-Ancillary (obtain specimen); Complete Time: 04:09 [facility] 07/26 04:09 Order name: IV Saline Lock; Complete Time: 04:24 [facility] 07/26 04:09 Order name: Labs collected and sent; Complete Time: 04:24 [facility] 07/26 04:55 Order name: Urine Culture [facility] 07/26 05:07 Order name: CT Stone Protocol [facility] Administered Medications: 05:10 Drug: Zofran (Ondansetron) 4 mg Route: IVP; Site: left antecubital; rr5 06:00 Follow up: Response: No adverse reaction rr5 05:12 Drug: morphine 4 mg {Note: rass 0.} Route: IVP; Site: left antecubital; rr5 06:00 Follow up: Response: No adverse reaction; RASS: Alert and Calm (0) rr5 05:59 Drug: NS 0.9% 1000 ml Route: IV; Rate: 1000 ml; Site: left antecubital; rr5 06:53 Follow up: Response: No adverse reaction; IV Status: Completed infusion; IV Intake: rr5 1000ml Disposition: 07/26/20 06:29 Discharged to Home. Impression: Ureterolithiasis. - Condition is Stable. - Discharge Instructions: Kidney Stones, Nozi-na-Dbqw. - Prescriptions for Zofran ODT 4 mg Oral tablet,disintegrating - place 1 tablet by TRANSLINGUAL route every 8 hours As needed; 6 tablet. Colace 100 mg Oral Tablet - take 1 tablet by ORAL route every 12 hours; 14 tablet. Tylenol- Codeine #3 300-30 mg Oral Tablet - take 2 tablets by ORAL route every 4-6 hours As needed; 20 tablet. Flomax 0.4 mg Oral Capsule, Sust. Release 24 hr - take 1 capsule by ORAL route once daily 1/2 hour following the same meal each day; 10 capsule. - Medication Reconciliation Form, Thank You Letter, Antibiotic Education, Prescription Opioid Use form. - Follow up: Private Physician; When: 1 - 2 days; Reason: Worsening of condition, Recheck today's complaints, Continuance of care, Re-evaluation by your physician. Follow up: Kevin Sarkar MD; When: 1 - 2 days; Reason: Worsening of condition, Recheck today's complaints, Continuance of care, Re-evaluation by your physician. - Problem is new. - Symptoms have improved. Signatures: Dispatcher [employer] EDKirti Ta RN RN Matt Schneider RN RN rr5 Norberto Chan MD MD mh7 Corrections: (The following items were deleted from the chart) 06:55 06:29 07/26/2020 06:29 Discharged to Home. Impression: Ureterolithiasis. Condition is rr5 Stable. Forms are Medication Reconciliation Form, Thank You Letter, Antibiotic Education, Prescription Opioid Use. Follow up: Private Physician; When: 1 - 2 days; Reason: Worsening of condition, Recheck today's complaints, Continuance of care, Re-evaluation by your physician. Follow up: Kevin Sarkar; When: 1 - 2 days; Reason: Worsening of condition, Recheck today's complaints, Continuance of care, Re-evaluation by your physician. Problem is new. Symptoms have improved. mh7
[2020-07-26 07:09] VITALS: TEMP 98
[2020-07-26 07:13] VITALS: BP 147/85; O2SAT 98
--- NOTE | 2020-07-26 19:07 | RAD REPORT ---
EXAM DESCRIPTION: CT ABDOMEN AND PELVIS WITHOUT CONTRAST CLINICAL HISTORY: Abd pain;Flank pain COMPARISON: None Available. TECHNIQUE: CT of the abdomen and pelvis without IV contrast. Evaluation of the solid organs and vasc ulature is suboptimal due to lack of IV contrast. This exam was performed according to our department al dose-optimization program, which includes automated exposure control, adjustment of the mA and/or kV according to patient size and/or use of iterative reconstruction technique. FINDINGS: Lung Bases: The visualized lung bases are clear. Bones: Multilevel degenerative endplate spondylosis and facet arthropathy. Osteoarthritic change of t he hips. Abdomen: Liver: The liver has normal size and density. Gallbladder: Prior cholecystectomy. Spleen, Pancreas, and Adrenal Glands: The spleen, pancreas, and adrenal glands are unremarkable. Kidneys: There is a 0.5 cm obstructing calculus in the distal right ureter producing mild right hydro ureter and hydronephrosis. Bilateral nonobstructing nephrolithiasis. No left hydronephrosis. Vasculature: Aortoiliac atherosclerosis. IVC is unremarkable. Stomach: The stomach and duodenum have normal course. Other: No free intraperitoneal air. No free fluid or lymphadenopathy. Pelvis: Bladder: Urinary bladder is unremarkable. Bowel: No dilated loops of large or small bowel. Appendix: Normal appendix. Pelvis: Enlarged prostate. IMPRESSION: 1. There is a 0.5 cm obstructing calculus in the distal right ureter producing mild ri ght hydroureter and hydronephrosis. 2. Bilateral nonobstructing nephrolithiasis. 3. Enlarged prostate. Electronically signed by: Ascencion Ibrahim 07/26/2020 5:41 AM CDT Due to temporary technical issues with the PACS/Fluency reporting system, reports are being signed by the in house radiologists without review as a courtesy to insure prompt reporting. The interpreting radiologist is fully responsible for the content of the report.
== END 2020-07-26 06:55 | disposition home or self-care (01) ==
LOC: ER 03:14
DX: N20.1 Calculus of ureter (principal); I10 Essential (primary) hypertension; E78.5 Hyperlipidemia, unspecified; E11.9 Type 2 diabetes mellitus without complications; Z95.1 Presence of aortocoronary bypass graft
CPT/HCPCS: 96361; 85025; 87086; 80048; 36415; 80076; 83690; 76377; 74176; 96375; 96374; 99284; J7030; J2405; 81003; 81015; 87088

== ENCOUNTER 2021-10-22 09:07 | Emergency (ER) | payer BC ==
--- OUTSIDE RECORDS SUMMARY | 2021-10-22 09:12 | XMS REPORT | Continuity of Care Document ---
:1960 Author Organization [facility] t Address [address] [place] [address] Care Team Providers Name [place] [facility] [facility] Primary Care Physician Unavailable OG PURI Attending Clinician Unavailable OG PURI Attending Clinician Unavailable 1, [facility] Attending Clinician Unavailable Og Puri MD Attending Clinician Only, [facility] Test Attending Clinician Unavailable Doctor Unassigned, [place] Attending Clinician Unavailable Tr Nj Attending Clinician Unavailable Tr Nj Admitting Clinician Unavailable Payers Payer Name Policy Type Policy Number Effective Date Expiration Date S lis DELVALLE [id number] 2020 ADMINISTRATION 00:00:00 [employer] [place] - OUT [id number] 2019 OF [facility] 00:00:00 Problems Condition Condition Condition Status Onset Resolution Last Treating Co mments Source Name Details Category Date Date Treatment Clinician Date No known No known Disease Unive rs active active ity of problems problems [facility] Allergies, Adverse Reactions, Alerts Allergy Allergy Status Severity Reaction(s) Onset Inactive Treating Comm ents Source Name Type Date Date Clinician No Known DA Active U 2010-03 [facility] Allergie 2- Clear s 00:00: Saunders 00 [facility] NO KNOWN Drug Active Univers ALLERGIE Class ity of S [facility] Social History Social Habit Start Date Stop Date Quantity Comments Source Exposure to Not sure [facility] SARS-CoV-2 (event) Medica l Branch Sex Assigned At [birth year] [facility] 00:00:00 00:00:00 Medical Branch Smoking Status Start Date Stop Date Source Unknown if ever smoked [facility] Medical Branch Medications Ordered Filled Start Stop Current Ordering Indication Dosage Frequency Signature Comments Components Source Medication Medication Date Date Medication? Clinician (SIG) Name Name ibuprofen Yes ibuprofen Uni vers 400 mg 9-01 400 mg ity of tablet 16:48: tablet [place] 22 TAKE ONE Medical (1) Branch TABLET(S) BY MOUTH EVERY FOUR HOURS NEEDED FOR PAIN. ibuprofen Yes ibuprofen Uni vers 400 mg 9-01 400 mg ity of tablet 16:48: tablet [place] 22 TAKE ONE Medical (1) Branch TABLET(S) BY MOUTH EVERY FOUR HOURS NEEDED FOR PAIN. ibuprofen Yes ibuprofen Uni vers 400 mg 9-01 400 mg ity of tablet 16:48: tablet [place] 22 TAKE ONE Medical (1) Branch TABLET(S) BY MOUTH EVERY FOUR HOURS NEEDED FOR PAIN. ibuprofen Yes ibuprofen Uni vers 400 mg 9-01 400 mg ity of tablet 16:48: tablet [place] 22 TAKE ONE Medical (1) Branch TABLET(S) BY MOUTH EVERY FOUR HOURS NEEDED FOR PAIN. ibuprofen Yes ibuprofen Uni vers 400 mg 9-01 400 mg ity of tablet 11:48: tablet [place] 22 TAKE ONE Medical (1) Branch TABLET(S) BY MOUTH EVERY FOUR HOURS NEEDED FOR PAIN. ibuprofen Yes ibuprofen Uni vers 400 mg 9-01 400 mg ity of tablet 11:48: tablet [place] 22 TAKE ONE Medical (1) Branch TABLET(S) BY MOUTH EVERY FOUR HOURS NEEDED FOR PAIN. ibuprofen Yes ibuprofen Uni vers 400 mg 9-01 400 mg ity of tablet 11:48: tablet [place] 22 TAKE ONE Medical (1) Branch TABLET(S) BY MOUTH EVERY FOUR HOURS NEEDED FOR PAIN. ibuprofen Yes ibuprofen Uni vers 400 mg 9-01 400 mg ity of tablet 11:48: tablet [place] 22 TAKE ONE Medical (1) Branch TABLET(S) BY MOUTH EVERY FOUR HOURS NEEDED FOR PAIN. losartan 25 Yes TAKE ONE Un kaitlin mg tablet 8-27 TABLET BY ity o f 00:00: MOUTH [place] 00 DAILY FOR Medical BLOOD Branch PRESSURE losartan 25 Yes TAKE ONE Un kaitlin mg tablet 8-27 TABLET BY ity o f 00:00: MOUTH [place] 00 DAILY FOR Medical BLOOD Branch PRESSURE losartan 25 Yes TAKE ONE Un [place]lin mg tablet 8-27 TABLET BY ity o f 00:00: MOUTH [place] 00 DAILY FOR Medical BLOOD Branch PRESSURE losartan 25 Yes TAKE ONE Un [place] mg tablet 8-27 TABLET BY ity o f 00:00: MOUTH [place] 00 DAILY FOR Medical BLOOD Branch PRESSURE losartan 25 Yes TAKE ONE Un kaitlin mg tablet 8-27 TABLET BY ity o f 00:00: MOUTH [place] 00 DAILY FOR Medical BLOOD Branch PRESSURE losartan 25 Yes TAKE ONE Un [place] mg tablet 8-27 TABLET BY ity o f 00:00: MOUTH [place] 00 DAILY FOR Medical BLOOD Branch PRESSURE losartan 25 Yes TAKE ONE Un [place] mg tablet 8-27 TABLET BY ity o f 00:00: MOUTH [place] 00 DAILY FOR Medical BLOOD Branch PRESSURE losartan 25 Yes TAKE ONE Un [place] mg tablet 8-27 TABLET BY ity o f 00:00: MOUTH [place] 00 DAILY FOR Medical BLOOD Branch PRESSURE ergocalcife Yes TAKE ONE Un kaitlin rol, 6-01 CAPSULE BY ity of vitamin d2, 00:00: MOUTH [place] 1,250 mcg 00 EVERY WEEK Medi joe (50,000 *DO NOT Branch unit) CRUSH* capsule metformin Yes TAKE ONE Univ ers ER 500 mg 6-01 TABLET BY ity o f 24 hr 00:00: MOUTH [place] tablet 00 DAILY FOR Medical DIABETES Branch *DO NOT CRUSH* metoprolol Yes TAKE ONE Uni vers succinate 6-01 TABLET BY ity o f XL 25 mg 24 00:00: MOUTH [place] hr tablet 00 DAILY FOR Medic al HEART/BLOO Branch D PRESSURE. *DO NOT CRUSH* ergocalcife Yes TAKE ONE Un kaitlin rol, 6-01 CAPSULE BY ity of vitamin d2, 00:00: MOUTH [place] 1,250 mcg 00 EVERY WEEK Medi joe (50,000 *DO NOT Branch unit) CRUSH* capsule metformin Yes TAKE ONE Univ ers ER 500 mg 6-01 TABLET BY ity o f 24 hr 00:00: MOUTH [place] tablet 00 DAILY FOR Medical DIABETES Branch *DO NOT CRUSH* metoprolol Yes TAKE ONE Uni vers succinate 6-01 TABLET BY ity o f XL 25 mg 24 00:00: MOUTH [place] hr tablet 00 DAILY FOR Medic al HEART/BLOO Branch D PRESSURE. *DO NOT CRUSH* ergocalcife Yes TAKE ONE Un kaitlin rol, 6-01 CAPSULE BY ity of vitamin d2, 00:00: MOUTH [place] 1,250 mcg 00 EVERY WEEK Medi joe (50,000 *DO NOT Branch unit) CRUSH* capsule metformin Yes TAKE ONE Univ ers ER 500 mg 6-01 TABLET BY ity o f 24 hr 00:00: MOUTH [place] tablet 00 DAILY FOR Medical DIABETES Branch *DO NOT CRUSH* metoprolol Yes TAKE ONE Uni vers succinate 6-01 TABLET BY ity o f XL 25 mg 24 00:00: MOUTH [place] hr tablet 00 DAILY FOR Medic al HEART/BLOO Branch D PRESSURE. *DO NOT CRUSH* ergocalcife Yes TAKE ONE Un kaitlin rol, 6-01 CAPSULE BY ity of vitamin d2, 00:00: MOUTH [place] 1,250 mcg 00 EVERY WEEK Medi joe (50,000 *DO NOT Branch unit) CRUSH* capsule metformin Yes TAKE ONE Univ ers ER 500 mg 6-01 TABLET BY ity o f 24 hr 00:00: MOUTH [place] tablet 00 DAILY FOR Medical DIABETES Branch *DO NOT CRUSH* metoprolol Yes TAKE ONE Uni vers succinate 6-01 TABLET BY ity o f XL 25 mg 24 00:00: MOUTH [place] hr tablet 00 DAILY FOR Medic al HEART/BLOO Branch D PRESSURE. *DO NOT CRUSH* ergocalcife Yes TAKE ONE Un kaitlin rol, 6-01 CAPSULE BY ity of vitamin d2, 00:00: MOUTH [place] 1,250 mcg 00 EVERY WEEK Medi joe (50,000 *DO NOT Branch unit) CRUSH* capsule metformin Yes TAKE ONE Univ ers ER 500 mg 6-01 TABLET BY ity o f 24 hr 00:00: MOUTH [place] tablet 00 DAILY FOR Medical DIABETES Branch *DO NOT CRUSH* metoprolol Yes TAKE ONE Uni vers succinate 6-01 TABLET BY ity o f XL 25 mg 24 00:00: MOUTH [place] hr tablet 00 DAILY FOR Medic al HEART/BLOO Branch D PRESSURE. *DO NOT CRUSH* ergocalcife Yes TAKE ONE Un kaitlin rol, 6-01 CAPSULE BY ity of vitamin d2, 00:00: MOUTH [place] 1,250 mcg 00 EVERY WEEK [facility] joe (50,000 *DO NOT Branch unit) CRUSH* capsule metformin Yes TAKE ONE Univ ers ER 500 mg 6-01 TABLET BY ity o f 24 hr 00:00: MOUTH [place] tablet 00 DAILY FOR Medical DIABETES Branch *DO NOT CRUSH* metoprolol Yes TAKE ONE Uni vers succinate 6-01 TABLET BY ity o f XL 25 mg 24 00:00: MOUTH [place] hr tablet 00 DAILY FOR Medic al HEART/BLOO Branch D PRESSURE. *DO NOT CRUSH* ergocalcife Yes TAKE ONE Un kaitlin rol, 6-01 CAPSULE BY ity of vitamin d2, 00:00: MOUTH [place] 1,250 mcg 00 EVERY WEEK [facility] joe (50,000 *DO NOT Branch unit) CRUSH* capsule metformin Yes TAKE ONE Univ ers ER 500 mg 6-01 TABLET BY ity o f 24 hr 00:00: MOUTH [place] tablet 00 DAILY FOR Medical DIABETES Branch *DO NOT CRUSH* metoprolol Yes TAKE ONE Uni vers succinate 6-01 TABLET BY ity o f XL 25 mg 24 00:00: MOUTH [place] hr tablet 00 DAILY FOR Medic al HEART/BLOO Branch D PRESSURE. *DO NOT CRUSH* ergocalcife Yes TAKE ONE Un kaitlin rol, 6-01 CAPSULE BY ity of vitamin d2, 00:00: MOUTH [place] 1,250 mcg 00 EVERY WEEK [facility] joe (50,000 *DO NOT Branch unit) CRUSH* capsule metformin Yes TAKE ONE Univ ers ER 500 mg 6-01 TABLET BY ity o f 24 hr 00:00: MOUTH [place] tablet 00 DAILY FOR Medical DIABETES Branch *DO NOT CRUSH* metoprolol Yes TAKE ONE Uni vers succinate 6-01 TABLET BY ity o f XL 25 mg 24 00:00: MOUTH [place] hr tablet 00 DAILY FOR Medic al HEART/BLOO Branch D PRESSURE. *DO NOT CRUSH* allopurinoL 2019-03 Yes TAKE ONE Un kaitlin 100 mg 1-23 TABLET BY ity of tablet 00:00: MOUTH [place] DAILY FOR Medical GOUT Branch atorvastati 2020- Yes TAKE Univer s n 80 mg 1-23 ONE-HALF ity of tablet 00:00: TABLET BY [address] AT [facility] BEDTIME [place] FOR CHOLESTERO L glipiZIDE 2020 Yes TAKE Univers 10 mg 1-23 ONE-HALF ity of tablet 00:00: TABLET BY [address] Medical TWICE A Branch DAY FOR DIABETES allopurinoL 2020 Yes TAKE ONE Un [place] 100 mg 1-23 TABLET BY ity of tablet 00:00: MOUTH [place] DAILY FOR Medical GOUT Branch atorvastati 2019-03 Yes TAKE Univer s n 80 mg 1-23 ONE-HALF ity of tablet 00:00: TABLET BY [address] AT [facility] BEDTIME [place] FOR CHOLESTERO L glipiZIDE 2019-03 Yes TAKE Univers 10 mg 1-23 ONE-HALF ity of tablet 00:00: TABLET BY [address] TWICE A Branch DAY FOR DIABETES allopurinoL 2019-03 Yes TAKE ONE Un kaitlin 100 mg 1-23 TABLET BY ity of tablet 00:00: MOUTH [place] DAILY FOR Medical GOUT Branch atorvastati 2019-03 Yes TAKE Univer s n 80 mg 1-23 ONE-HALF ity of tablet 00:00: TABLET BY [address] AT [facility] FOR CHOLESTERO L glipiZIDE 2020 Yes TAKE Univers 10 mg 1-23 ONE-HALF ity of tablet 00:00: TABLET BY [address] TWICE A Branch DAY FOR DIABETES allopurinoL 2019-03 Yes TAKE ONE Un [place]ait[place] 100 mg 1-23 TABLET BY ity of tablet 00:00: MOUTH [place] DAILY FOR Medical GOUT Branch atorvastati 2019- Yes TAKE Univer s n 80 mg 1-23 ONE-HALF ity of tablet 00:00: TABLET BY [address] AT [facility] BEDTIME [place] FOR CHOLESTERO L glipiZIDE 2020- Yes TAKE Univers 10 mg 1-23 ONE-HALF ity of tablet 00:00: TABLET BY [address] Medical TWICE A Branch DAY FOR DIABETES allopurinoL 2019-03 Yes TAKE ONE Un [place]ait[place] 100 mg 1-23 TABLET BY ity of tablet 00:00: MOUTH [place] DAILY FOR Medical GOUT Branch atorvastati 2019- Yes TAKE Univer s n 80 mg 1-23 ONE-HALF ity of tablet 00:00: TABLET BY [address] AT [facility] BEDTIME [place] FOR CHOLESTERO L glipiZIDE 2020 Yes TAKE Univers 10 mg 1-23 ONE-HALF ity of tablet 00:00: TABLET BY [address] TWICE A Branch DAY FOR DIABETES allopurinoL 2019-03 Yes TAKE ONE Un [place] 100 mg 1-23 TABLET BY ity of tablet 00:00: MOUTH [place] DAILY FOR Medical GOUT Branch atorvastati 2019-03 Yes TAKE Univer s n 80 mg 1-23 ONE-HALF ity of tablet 00:00: TABLET BY [address] [facility] FOR CHOLESTERO L glipiZIDE 2019-03 Yes TAKE Univers 10 mg 1-23 ONE-HALF ity of tablet 00:00: TABLET BY [address] TWICE A Branch DAY FOR DIABETES allopurinoL 2019-03 Yes TAKE ONE Un [place]ait[place] 100 mg 1-23 TABLET BY ity of tablet 00:00: MOUTH [place] DAILY FOR Medical GOUT Branch atorvastati 2019-03 Yes TAKE Univer s n 80 mg 1-23 ONE-HALF ity of tablet 00:00: TABLET BY [address] AT [facility] FOR CHOLESTERO L glipiZIDE 2019-03 Yes TAKE Univers 10 mg 1-23 ONE-HALF ity of tablet 00:00: TABLET BY [address] TWICE A Branch DAY FOR DIABETES allopurinoL 2019-03 Yes TAKE ONE Un kait[place] 100 mg 1-23 TABLET BY ity of tablet 00:00: MOUTH [place] DAILY FOR Medical GOUT Branch atorvastati 2019-03 Yes TAKE Univer s n 80 mg 1-23 ONE-HALF ity of tablet 00:00: TABLET BY [address] [facility] FOR CHOLESTERO L glipiZIDE 2019-03 Yes TAKE Univers 10 mg 1-23 ONE-HALF ity of tablet 00:00: TABLET BY [address] TWICE A Branch DAY FOR DIABETES No known No Univers medications ity of [facility] No known No Univers medications ity of [facility] No known No Univers medications it of [facility] Vital Signs Vital Name Observation Time Observation Value Comments Source Systolic blood 2020-10-30 16:46:00 119 mm[Hg] Univer sity of pressure [facility] Diastolic blood 2020-10-30 16:46:00 70 mm[Hg] Unive rsity of [facility] Branch Heart rate 2020-10-30 16:46:00 83 /min Universi ty of [place] [facility] [place] Body temperature 2020-10-30 16:46:00 36.06 [place] Univ ersity of [place] [facility] Branch Respiratory rate 2020-10-30 16:46:00 18 /min Univ ersity of [place] [facility] [place] Body height 2020-10-30 16:46:00 167.6 cm Universi ty of [place] [facility] [place] Body weight 2020-10-30 16:46:00 84.505 kg Universi ty of [place] [facility] Branch BMI 2020-10-30 16:46:00 30.07 kg/m2 Universi ty of [facility] Oxygen saturation in 2020-10-30 16:46:00 97 /min University of Arterial blood by [facility] Pulse oximetry Branch Systolic blood 2020-09-11 14:01:00 124 mm[Hg] Univer sity of pressure [facility] Diastolic blood 2020-09-11 14:01:00 73 mm[Hg] Unive rsity of pressure [facility] Heart rate 2020-09-11 14:01:00 85 /min Universi ty of [place] [facility] [place] Body temperature 2020-09-11 14:01:[address] 36.[address] [place] Univ ersity of [facility] Respiratory rate 2020-09-11 14:01:00 18 /min Univ ersity of [place] [facility] [place] Body height 2020-09-11 14:01:00 167.6 cm Universi ty of [place] [facility] [place] Body weight 2020-09-11 14:01:00 83.28 kg Universi ty of [place] [facility] [place] BMI 2020-09-11 14:01:00 29.63 kg/m2 Universi ty of [place] [facility] [place] Oxygen saturation in 2020-09-11 14:01:00 98 /min University of Arterial blood by [facility] Pulse oximetry Branch Procedures Procedure Date / Time Performing Clinician Source Performed ASSIGNMENT OF BENEFITS 2020-12-06 14:49:44 Doctor Unassigned, No [facility] DME/SUPPLY JUSTIFICATION 2020-11-15 05:01:00 Doctor Unassigned, No [facility] VACCINATIONS - CONSENTS, 2020-09-20 05:01:00 Doctor Unassigned, No [facility] ELIGIBILITY, HISTORY Name Medical Bra [facility] Encounters Start End Encounter Admission Attending Care Care Encounter Source Date/Time Date/Time Type Type Clinicians Facility Department ID 2021-01-15 2021-01-15 Outpatient R OG PURI [facility] [id number] Univers 10:20:00 10:20:00 OG PURI [id number] ity [facility] 2021-01-15 2021-01-15 Outpatient R OG PURI [facility] [id number] Univers 10:20:00 10:20:00 [facility] 2020-12-09 2020-12-09 Outpatient R [facility] [id number] Univers 19:30:00 19:30:00 [id number] ity [facility] 2020-12-09 2020-12-09 Outpatient R OG PURI [facility] [id number] Univers 19:30:00 19:30:00 OG PURI [facility] 2020-12-09 2020-12-09 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 2.840.114 [id number] Univers 14:11:49 16:41:49 Visit Og Puri 350.1.13. 10 ity of [place] [id number] [facility] [phone] [facility] 193 Branch 2020-12-06 2020-12-06 Laboratory Only, [facility] Test [facility] 1.2.840. 114 [id number] Univers 09:55:41 10:10:41 Only Og Puri 350.1.13. 10 ity of [place] 4.2.7.2.686 [facility] [phone] [facility] 353 Branch 2020-12-06 2020-12-06 Outpatient R [facility] [id number] Univers 10:00:00 10:00:00 [id number] [facility] 2020-12-06 2020-12-06 Outpatient R [facility] [id number] Univers 10:00:00 10:00:00 [facility] 2020-12-06 2020-12-06 Orders Doctor CHRISTENSEN 1.2.840.114 [id number] Univers 00:00:00 00:00:00 Only Unassigned, DWIGHT [id number] ity of [place] [facility] 4.2.7.2.686 [place] as [phone] [address] 2020-11-15 2020-11-15 Orders Doctor FERMIN [id number] [id number] Univers 00:00:00 00:00:00 Only Unassigned, DW[place] [id number] ity of [place] [facility] 4.2.7.2.686 [place] as [phone] [address] 2020-10-30 2020-10-30 Office Amber [facility] [id number] Univers 11:36:32 11:56:32 Visit Og [place] 350.1.13.10 ity [facility] 4.2.7.2.686 [place] [phone] [place] dical [facility] 2020-10-30 2020-10-30 Outpatient R OG PURI [facility] [id number] Univers 11:40:00 11:40:00 OG PURI [id number] [facility] 2020-10-30 2020-10-30 Outpatient R OG PURI [facility] [id number] Univers 11:40:00 11:40:00 OG PURI [facility] 2020-09-25 2020-09-25 Outpatient R [facility] [id number] Univers 19:30:00 19:30:00 [id number] [facility] 2020-09-25 2020-09-25 Outpatient R OG PURI [facility] [id number] Univers 19:30:00 19:30:00 OG PURI [facility] 2020-09-25 2020-09-25 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 2.840.114 [id number] Univers 15:15:54 17:45:54 Visit Og Puri 350.1.13. 10 ity of [place] 4.2.7.2.686 [place] [phone] [facility] 193 Branch 2020-09-20 2020-09-20 Orders Doctor FERMIN 1.2.840.114 [id number] Univers 00:00:00 00:00:00 Only Unassigned, DWIGHT 350.1.13.10 ity of [place] [facility] 4.2.7.2.686 [place] [phone] [facility] 009 [place] 2020-09-11 2020-09-11 Office Amber [facility] [id number] Univers 08:48:47 09:42:06 Visit Og [place] 350.1.13.10 ity of [place] 4.2.7.2.686 [place] [facility] [phone] [place] dical nal 085 [facility] 2020-09-11 2020-09-11 Outpatient R OG PURI [facility] [id number] Univers 09:30:00 09:30:00 OG PURI [facility] 2018-07-22 2018-07-23 Inpatient CAMRYN Nj [facility].01 [id number] [facility] 16:29:00 22:36:[address] [place] [address] Results Test Description Test Time Test Comments Results Result Comments Source SURG 2018-07-27 12:56:00 --------RUN DATE: 07/27/18 [facility] - LAB *LIVE* PAGE 1 RUN TIME: 1256 Specimen Inquiry RUN USER: INTERFACE --------PATIENT: JAGDISH CHRISTENSEN V LOC: Messi U #: [id number] AGE/SX: 58/M ROOM: [facility] RE07/22/18[facility] DR: Tr Nj MD : 64 BED: 1 DIS: 07/23/18 STATUS: DIS Lexi TLOC: -------- SPEC #: [id number] RECD: 07/26/18 STATUS: SERA REQ #: [id number] PIOTR: 07/23/[address]: Tr Nj MD ENTERED: 07/26/18 SP TYPE: SURG OTHR DR: No Primary or Family Physician Self Referred Surinder Montalvo MDORDERED: SURG PATH LVL 3 COPIES TO: No Primary [place] [address] [place] [address] [email or web address] [address] [place] [address] HISTOLOGY: TISSUE ID BLK PCS MEGHNA LEV PROCEDURE DISPOSITION ____ ___ ___ ___ GALLBLADDER, NO A 1-2 1 PROCEDURES: SURG PATH LVL 3 (07/26/18) TISSUES: A. GALLBLADDER, NOS - GALLBLADDER CLINICAL HISTORY ABD PAIN CPT CODES CPT CODE(S): 38657 , , , , , , CONTINUED ON NEXT PAGE --------RUN DATE: 07/27/18 [facility] - LAB *LIVE* PAGE 2 RUN TIME: 1256 Specimen Inquiry RUN USER: INTERFACE --------SPEC #: [facility]:[id number] PATIENT: JAGDISH CHRISTENSEN V #[id number] (Continued) FINAL DIAGNOSIS Gallbladder, laparoscopic cholecystectomy: MILD [...] x 0.7 x 0.3 cm in aggregate. Senior Construction Project Manager section submitted as A. /ba/pdb Grossing performed at [facility] Pathology, [address] [facility] [address] [facility] [address], [address], [place] [address]. Pearl Cutter: Finesse Fuentes M.D. MICROSCOPIC DESCRIPTION Gallbladder. Sections [...] ALKP) 81 Unit/L 50-136 N GLUCOSE BEDSIDE [id number] 16:44:00 Test Item Value Reference Range Interpretation Comments GLUCOSE BEDSIDE TESTING (test code 147 mg/dL 70-110 H = GLUBED) CBC W/AUTO [id number] 16:07:00 Test Item Value Reference Range Interpretation [...] = NO DIFF/SCN CRITERIA MDIFF) GLUCOSE BEDSIDE [id number] 13:00:00 Test Item Value Reference Range Interpretation Comments GLUCOSE BEDSIDE TESTING (test code 143 mg/dL 70-110 H = GLUBED) GLUCOSE BEDSIDE [id number] 10:06:00 Test Item Value Reference Range Interpretation Comments GLUCOSE BEDSIDE TESTING (test code 113 mg/dL 70-110 H = GLUBED) GLUCOSE BEDSIDE [id number] 07:51:00 Test Item Value Reference Range Interpretation Comments GLUCOSE BEDSIDE TESTING (test code 131 mg/dL 70-110 H = GLUBED) COMPREHENSIVE METABOLIC [id number] 07:11:00 Test Item Value Reference Range Interpretation [...] TOTAL (test code = ALKP) COMPREHENSIVE METABOLIC [id number] 06:59:00 Test Item Value Reference Range Interpretation [...] Unit/L 50-136 code = ALKP) CBC W/AUTO [id number] 06:53:00 Test Item Value Reference Range Interpretation [...] DIFF/SCN CRITERIA MDIFF) - XR CHEST 1 [id number] 23:12:00 Name: JAGDISH CHRISTENSEN V [facility] : 1960 Age/S: 58 / M [id number] Unit #: [id number] Loc: [place] [address] Phys: Tr Nj MD Acct: [id number] Dis Date: Status: ADMIN PHONE #: [phone] Exam Date: 07/22/2018 2300 FAX #: Reason: FOR SURGERY IN AM. EXAMS: CPT: [id number] XR CHEST 1 V 69292 Fluoro Time: DAP (Gy m2): Air Kerma (mGy): HISTORY: Chest pain. 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 There is mild cardiomegaly. No vascular congestion. The lungs are clear of focal consolidation. No effusion, pneumothorax,or acute osseous abnormality. IMPRESSION: 1. Heart size is upper normal. No focal consolidation. at 2312 Reported and signed by: Yovani Chowdhury M.D. CC: Tr Nj MD PAGE 1 Signed Report Name: JAGDISH CHRISTENSEN and : 1960 Age/S: 58 / M [id number] Unit #: [id number] Loc: [place] [address] Phys: Tr Nj MD Acct: [id number] Dis Date: Status: ADM IN PHONE #: [phone] Exam Date: 07/22/2018 2300 FAX #: Reason: FOR SURGERY IN AM. EXAMS: CPT: [id number] XR CHEST 1 V 79978 Fluoro Time: DAP (Gy m2): Air Kerma (mGy): (Continued) Technologist: Evelia Lucio, RT(R)(CT) Trnscb Date/Time: 07/22/2018 (2312) [email or web address] Orig Print D/T: S: 07/22/2018 (2315) PAGE 2 Signed Report- CT ABD PELVIS [id number] 19:50:00 Name: JAGDISH CHRISTENSEN : 1960 Age/S: 58 / M [id number] Unit #: [id number] Loc: [place] [address] Phys: Tr Nj MD Acct: [id number] Dis Date: Status: ADM IN PHONE #: [phone] Exam Date: 07/22/20181927 FAX #: Reason: Abd pain EXAMS: CPT: [id number] CTABD PELVIS W/CONT [address]606 CT ABDOMEN AND PELVIS WITH IV CONTRAST [...] distended. There are few small gallstones in the neck of the gall bladder. There may be a small amount of pericholecystic fluid and minimal inflammatory changes. Milddiffuse low attenuation seen throughout the liver suggestive [...] free fluid or evidence of a bowel ob struction. Normal appendix. No bowel wall thickening. The aorta is normal in caliber with mild to moderate atherosclerotic disease. No abdominal or pelvic adenopathy. Mild lumbar spondylosis. IMPRESSION: PAGE 1 Signed Report (CONTINUED) Name: JAGDISH CHRISTENSEN [facility] [facility] 1960 Age/S: 58/ M [address] Unit #: [id number] Loc: [place] [address] Phys: Tr Nj MD Acct: [id number] Dis Date: Status: ADM IN PHONE #: [phone] Exam Date: 07/22/20181927 FAX #: Reason: Abd pain EXAMS: CPT: [id number] CT ABD PELVIS W/CONT [id number] (Continued) Cholelithiasis. Minimal inflammatory changes and probable pericholecystic fluid concerning for acute cholecystitis. A right upper quadrant ultrasound may be helpful for further assessment. Normal appendix. Multiple nonobstructing right renal stones. at 1950 Reported and signed by: Liborio Box M.D. CC: Tr Nj MD Technologist:Dorian Escobedo, RT(R)(CT); .. CTDI: DLP: Trnscb Date/Time: 07/22/2018 (1949) [email or web address] Orig Print D/T: S: 07/22/2018 (1952) PAGE 2 Signed ReportLACTIC [id number] 18:23:00 Test Item Value Reference Range Interpretation Comments LACTIC ACID (test code = LACT) 1.4 mmol/L 0.4-2.0 N COMPREHENSIVE METABOLIC [id number] 18:09:00 Test Item Value Reference Range Interpretation [...] = LDL/HDL) 1.23 Ratio 1.48-3.22 Avg L [id number] 18:09:00 Test Item Value Reference Range Interpretation Comments PHOSPHOROUS (test code = PHOS) 2.5 MG/DL 2.5-4.9 N RULE OUT IN [id number] 18:09:00 Test Item Value Reference Range Interpretation [...] nume rical results may dustin yby method. [id number] 18:09:00 Test Item Value Reference Range Interpretation Comments LIPASE (test code = LIP) 457 Unit/L 114-286 H [id number] 18:09:00 Test Item Value Reference Range Interpretation Comments MAGNESIUM (test code = MAG) 2.0 MG/DL 1.8-2.4 N COMPREHENSIVE METABOLIC [id number] 18:05:00 Test Item Value Reference Range Interpretation [...] (test code = LDL/HDL) Ratio 1.48-3.22 Avg [id number] 18:05:00 Test Item Value Reference Range Interpretation Comments PHOSPHOROUS (test code = PHOS) MG/DL 2.5-4.9 RULE OUT IN [id number] 18:05:00 Test Item Value Reference Range Interpretation Comments CREATINE KINASE (CK) (test code = CK) Unit/L 26-192 TROPONIN-I (test code = TROPI) NG/ML 0.000-0.045 [id number] 18:05:00 Test Item Value Reference Range Interpretation Comments LIPASE (test code = LIP) Unit/L 114-286 [id number] 18:05:00 Test Item Value Reference Range Interpretation Comments MAGNESIUM (test code = MAG) MG/DL 1.8-2.4 PROTHROMBIN [id number] 17:54:00 Test Item Value Reference Range Interpretation Comments PT PATIENT (test code = PTP) 11.2 SECONDS 9.3-12.9 N INTERNATIONAL NORMAL RATIO 0.97 INR Unit 0.8-1.2 N (test code = INR) CBC W/AUTO [id number] 17:48:00 Test Item Value Reference Range Interpretation [...]
[2021-10-22 09:29] LABS: Urine Blood 3+ (Negative); Urine Glucose Negative (Negative); Urine Protein 2+ (Negative); Urine Specific Gravity >=1.030 (1.005-1.030); Urine pH 5.5 (5.0-7.0)
[2021-10-22] MEDS ORDERED: NA CHLORIDE 0.9% 1,000 ML ONE ×2 (09:30→10:36)
[2021-10-22] MEDS ORDERED: MORPHINE 4 MG/ML SYR ONE ×2 (09:30→12:12)
[2021-10-22] MEDS ORDERED: ONDANSETRON 4 MG/2 ML VIAL ONE ×2 (09:30→12:12)
[2021-10-22 09:39] LABS: Absolute Lymphocytes (CBC) 1.6 K/uL (0.7-4.9); Hematocrit 44.6 % (39.6-49.0); Lymphocytes % 21.6 % (15.3-44.8); MCV 84.6 fL (80-100); MPV 8.6 fL (7.6-11.3); RBC Red Blood Cell Count 5.27 M/uL (4.33-5.43)
[2021-10-22 09:57] LABS: Bilirubin Total 1.3 mg/dL (0.2-1.0); Potassium 3.7 mmol/L (3.5-5.1)
--- NOTE | 2021-10-22 10:03 | RAD REPORT ---
EXAM DESCRIPTION: CT - Stone Protocol - 10/22/2021 9:41 am CLINICAL HISTORY: flank pain COMPARISON: Stone Protocol dated 07/26/2020 TECHNIQUE: Axial 3 mm thick images were obtained without oral or IV contrast. The [id number] span s the entirety of the system including uppermost abdomen and lung bases. All CT scans are performed using dose optimization technique as appropriate and may include automated exposure control or mA/KV adjustment according to patient size. FINDINGS: Trace bilateral pleural fluid collection new from prior imaging. No acute lung parenchymal process seen. Mild left-sided hydronephrosis is present. The patient has a 5 mm stone at the left UVJ. The urinary bladder is fully contracted. This stone may have passed into the bladder lumen or is partially extend ing into the lumen. Bilateral 2-6 mm nonobstructing calyx calculi are present. No suspicious renal ma sses. Isodense masses and pyelonephritis are not excluded on a stone protocol CT scan. No significant adrenal finding. Imaged portions of the liver, spleen and pancreas show no suspicious findings on non-contrast imaging . Cholecystectomy clips are present. No biliary tree dilatation. No suspicious bowel findings. Appendix is normal. No acute GI process seen. No hernia, mass or bulky lymphadenopathy noted. No free air, free fluid or inflammatory stranding. No significant bony abnormality. Disc and bone degenerative changes are seen. IMPRESSION: Mild left-sided hydronephrosis secondary to a 5 mm stone at the left UVJ. The position o f the stone relative to the fully contracted bladder may indicate the stone partially extends into th e lumen of the bladder or may have already passed into the lumen. Bilateral nonobstructing 2-6 mm sized calyx calculi. Isodense masses and pyelonephritis are not excluded on stone protocol technique.
[2021-10-22] MEDS ORDERED: TAMSULOSIN 0.4 MG SR CAP ONE (10:36)
--- NOTE | 2021-10-22 11:50 | EDPHYS ---
Physician Documentation [facility] Name: Ivory Chery Age: 61 yrs Sex: Male : 1960 Arrival Date: 10/22/2021 Time: 09:08 Bed 23 Private MD: ED Physician Eloy Arreguin HPI: 10/22 09:10 This 61 yrs old Male presents to ER via Ambulatory with complaints of Flank jmm Pain - left, blood in urine. 09:10 The patient complains of pain in the left flank. The pain radiates to the abdomen. jmm Onset: The symptoms/episode began/occurred acutely. Modifying factors: The symptoms are alleviated by nothing. the symptoms are aggravated by nothing. Associated signs and symptoms: Pertinent positives: nausea, Pertinent negatives: dysuria, fever, vomiting. The patient has not experienced similar symptoms in the past. Historical: - Allergies: 09:14 No Known Allergies; ap3 - PMHx: 09:14 CAD; Diabetes - NIDDM; Gout; Hyperlipidemia; Hypertension; ap3 - Immunization history:: Client reports receiving the 2nd dose of the Covid vaccine. - Social history:: Smoking status: Patient denies any tobacco usage or history of. ROS: 09:10 Constitutional: Negative for fever, chills, and weight loss, Cardiovascular: Negative jmm for chest pain, palpitations, and edema, Respiratory: Negative for shortness of breath, cough, wheezing, and pleuritic chest pain. 09:10 Back: Positive for flank pain, on the left. 09:10 All other systems are negative. Exam: 09:10 Constitutional: This is a well developed, well nourished patient who is awake, alert, jmm and in no acute distress. Head/Face: atraumatic. Eyes: EOMI, no conjunctival erythema appreciated ENT: Moist Mucus Membranes Neck: Trachea midline, Supple Chest/axilla: Normal chest wall appearance and motion. Cardiovascular: Regular rate and rhythm. No edema appreciated Respiratory: Normal respirations, no respiratory distress appreciated Abdomen/GI: Non distended 09:10 Skin: General appearance color normal MS/ Extremity: Moves all extremities, no obvious deformities appreciated, no edema noted to the lower extremities Neuro: Awake and alert Psych: Behavior is normal, Mood is normal, Patient is cooperative and pleasant 09:10 Back: CVA tenderness, that is mild, is noted on the left. Vital Signs: 09:13 BP 145 / 79; Pulse 90; Resp 18; Pulse Ox 100% ; Weight 86.18 kg; Height 5 ft. 6 in. ap3 (167.64 cm); Pain 10/10; 10:36 BP 135 / 66; Pulse 88; Resp 15; Pulse Ox 98% on R/A; vg1 11:42 BP 127 / 75; Pulse 87; Resp 15; Pulse Ox 99% on R/A; vg1 12:12 BP 135 / 80; Pulse 88; Resp 16; Pulse Ox 98% on R/A; vg1 09:13 Body Mass Index 30.67 (86.18 kg, 167.64 cm) ap3 MDM: 09:17 Patient medically screened. [facility] 11:45 Data reviewed: vital signs, nurses notes. Counseling: I had a detailed discussion with mariann the patient and/or guardian regarding: the historical points, exam findings, and any diagnostic results supporting the discharge/admit diagnosis, lab results, radiology results, the need for outpatient follow up, to return to the emergency department if symptoms worsen or persist or if there are any questions or concerns that arise at home. ED course: Pain relieved in the ED. Patient advised to follow up with urology for further evaluation. Patient understood and agrees with the plan of care. . 10/22 09:10 Order name: CBC with Diff; Complete Time: 09:42 [facility] 10/22 09:10 Order name: CMP; Complete Time: 09:58 [facility] 10/22 09:10 Order name: Lipase; Complete Time: 09:58 [facility] 10/22 09:10 Order name: CT Stone Protocol; Complete Time: 10:04 [facility] 10/22 09:29 Order name: Urine Dipstick-Ancillary; Complete Time: 09:32 [facility] 10/22 09:10 Order name: IV Saline Lock; Complete Time: 09:31 [facility] 10/22 09:10 Order name: Labs collected and sent; Complete Time: 09:31 [facility] 10/22 09:10 Order name: Urine Dipstick-Ancillary (obtain specimen); Complete Time: 09:29 [facility] Administered Medications: 09:30 Drug: Zofran (Ondansetron) 4 mg Route: IVP; Site: left antecubital; vg1 10:35 Follow up: Response: No adverse reaction vg1 09:32 Drug: morphine 4 mg Route: IVP; Infused Over: 4 mins; Site: left antecubital; vg1 10:35 Follow up: Response: No adverse reaction; Marked relief of symptoms; RASS: Alert and vg1 Calm (0) 09:50 Drug: NS 0.9% 1000 ml Route: IV; Rate: 1 bolus; Site: left antecubital; vg1 10:35 Follow up: IV Status: Completed infusion; IV Intake: 1000ml vg1 10:31 Drug: Flomax (tamsulosin) 0.4 mg Route: PO; vg1 11:42 Follow up: Response: No adverse reaction vg1 11:42 Follow up: Response: No adverse reaction jl7 10:32 Drug: NS 0.9% 1000 ml Route: IV; Rate: 1 bolus; Site: left antecubital; vg1 11:42 Follow up: IV Status: Completed infusion; IV Intake: 1000ml vg1 12:02 Drug: Zofran (Ondansetron) 4 mg Route: IVP; Site: left antecubital; vg1 12:12 Follow up: Response: Medication administered at discharge. vg1 12:04 Drug: morphine 4 mg Route: IVP; Infused Over: 4 mins; Site: left antecubital; vg1 12:12 Follow up: Response: Medication administered at discharge. vg1 Disposition: 12:27 Co-signature as Attending Physician, Eloy Arreguin MD I agree with the assessment and kdr plan of care. Disposition Summary: 10/22/21 11:49 Discharge Ordered Location: Home [facility] Condition: Stable [facility] Diagnosis - Calculus of ureter [facility] Followup: [facility] - With: Kevin Sarkar MD - When: 2 - 3 days - Reason: Recheck today's complaints, Continuance of care, Re-evaluation by your physician Discharge Instructions: - Discharge Summary Sheet [facility] - Kidney Stones [facility] - Dietary Guidelines to Help Prevent Kidney Stones [facility] Forms: - Medication Reconciliation Form [facility] - Thank You Letter [facility] - Antibiotic Education [facility] - Prescription Opioid Use [facility] Prescriptions: - Tylenol-Codeine #3 300 mg-30 mg Oral - take 1 tablet by ORAL route every 4-6 hours; 20 tablet; Refills: 0, Product [facility] Selection Permitted - Flomax 0.4 mg Oral capsule - take 1 capsule by ORAL route once daily 1/2 hour following the same meal each [facility] day; 20 capsule; Refills: 0, Product Selection Permitted - ondansetron 4 mg Oral tablet,disintegrating - take 1 tablet by ORAL route every 4-6 hours As needed; 20 tablet; Refills: 0, [facility] Product Selection Permitted Signatures: Dispatcher [employer] Eloy Garza MD MD kdr Mickail, Joel, PA PA [facility] Tricia Hameed RN RN ap3 Jerri Acuna RN RN vg1 Cherri Lim RN jl7
--- NOTE | 2021-10-22 11:50 | ER ---
Nurse's Notes [facility] Name: Ivory Chery Age: 61 yrs Sex: Male : 1960 Arrival Date: 10/22/2021 Time: 09:08 Bed 23 Private MD: Diagnosis: Calculus of ureter Presentation: 10/22 09:13 Chief complaint: Patient states: he started having left sided flank pain with bloody ap3 urination at approx 0700 this morning, patient denies NV. Coronavirus screen: At this time, the client does not indicate any symptoms associated with coronavirus-19. Ebola Screen: No symptoms or risks identified at this time. Initial Sepsis Screen: Does the patient meet any 2 criteria? HR > 90 bpm. No. Patient's initial sepsis screen is negative. Does the patient have a suspected source of infection? No. Patient's initial sepsis screen is negative. Risk Assessment: Do you want to hurt yourself or someone else? Patient reports no desire to harm self or others. Onset of symptoms was October 22, 2021. 09:13 Method Of Arrival: Ambulatory ap3 09:13 Acuity: TRENT 3 ap3 Triage Assessment: 09:15 General: Appears uncomfortable, Behavior is restless. Pain: Complains of pain in right ap3 low back Pain radiates to left lower quadrant Pain currently is 10 out of 10 on a pain scale. Pain began gradually, 2 hours ago. Neuro: Level of Consciousness is awake, alert, obeys commands, Oriented to person, place, time, situation. Cardiovascular: Patient's skin is warm and dry. Respiratory: Airway is patent Respiratory effort is even, unlabored. : Reports bloody urination. Historical: - Allergies: 09:14 No Known Allergies; ap3 - PMHx: 09:14 CAD; Diabetes - NIDDM; Gout; Hyperlipidemia; Hypertension; ap3 - Immunization history:: Client reports receiving the 2nd dose of the Covid vaccine. - Social history:: Smoking status: Patient denies any tobacco usage or history of. Screenin:15 Abuse screen: Denies threats or abuse. Nutritional screening: No deficits noted. ap3 Tuberculosis screening: No symptoms or risk factors identified. 09:16 Fall Risk None identified. ap3 Assessment: 09:20 General: Appears in no apparent distress. uncomfortable, Behavior is calm, cooperative. vg1 Pain: Complains of pain in posterior aspect of left lateral abdomen and left lower quadrant Pain currently is 10 out of 10 on a pain scale. Pain began suddenly, this morning Noted to be grimacing, guarding, moaning. Neuro: Level of Consciousness is awake, alert, obeys commands, Oriented to person, place, time, situation. Cardiovascular: Capillary refill < 3 seconds. Respiratory: Airway is patent Respiratory effort is even, unlabored. GI: No signs and/or symptoms were reported involving the gastrointestinal system. : Urine is enrique blood, Reports pain in left flank(s), lower quadrant(s) urgency. EENT: No signs and/or symptoms were reported regarding the EENT system. Derm: Skin is intact, Skin is diaphoretic. Musculoskeletal: Circulation, motion, and sensation intact. 10:36 Reassessment: Patient appears in no apparent distress at this time. Patient and/or vg1 family updated on plan of care and expected duration. Pain level reassessed. Patient is alert, oriented x 3, equal unlabored respirations, skin warm/dry/pink. 11:42 Reassessment: Patient appears in no apparent distress at this time. No changes from vg1 previously documented assessment. Patient and/or family updated on plan of care and expected duration. Pain level reassessed. Patient is alert, oriented x 3, equal unlabored respirations, skin warm/dry/pink. 12:00 Reassessment: Pt c/o lower back pain 10/10 provider notified. received VO from [place] [id number] to administer 4 mg of zofran and 4 mg of morphine. Vital Signs: 09:13 BP 145 / 79; Pulse 90; Resp 18; Pulse Ox 100% ; Weight 86.18 kg; Height 5 ft. 6 in. ap3 (167.64 cm); Pain 10/10; 10:36 BP 135 / 66; Pulse 88; Resp 15; Pulse Ox 98% on R/A; vg1 11:42 BP 127 / 75; Pulse 87; Resp 15; Pulse Ox 99% on R/A; vg1 12:12 BP 135 / 80; Pulse 88; Resp 16; Pulse Ox 98% on R/A; vg1 09:13 Body Mass Index 30.67 (86.18 kg, 167.64 cm) ap3 ED Course: 09:08 Patient arrived in ED. am2 09:09 Boy Dallas PA is PHCP. jmm 09:09 Eloy Arreguin MD is Attending Physician. jmm 09:14 Triage completed. ap3 09:16 Arm band placed on left wrist. ap3 09:17 Jerri Acuna, RN is Primary Nurse. vg1 09:20 No provider procedures requiring assistance completed. vg1 09:31 Bed in low position. Call light in reach. Side rails up X 1. Door closed. Noise mb7 minimized. Client placed on continuous cardiac and pulse oximetry monitoring. NIBP monitoring applied. 09:31 Inserted saline lock: 20 gauge in left antecubital area, using aseptic technique. Blood mb7 collected. 09:31 Lipase Sent. mb7 09:31 CMP Sent. mb7 09:31 CBC with Diff Sent. mb7 09:42 CT Stone Protocol In Process Unspecified. EDMS 11:49 Kevin Sarkar MD is Referral Physician. jmm 12:13 IV discontinued, intact, bleeding controlled, No redness/swelling at site. Pressure vg1 dressing applied. Administered Medications: 09:30 Drug: Zofran (Ondansetron) 4 mg Route: IVP; Site: left antecubital; vg1 10:35 Follow up: Response: No adverse reaction vg1 09:32 Drug: morphine 4 mg Route: IVP; Infused Over: 4 mins; Site: left antecubital; vg1 10:35 Follow up: Response: No adverse reaction; Marked relief of symptoms; RASS: Alert and vg1 Calm (0) 09:50 Drug: NS 0.9% 1000 ml Route: IV; Rate: 1 bolus; Site: left antecubital; vg1 10:35 Follow up: IV Status: Completed infusion; IV Intake: 1000ml vg1 10:31 Drug: Flomax (tamsulosin) 0.4 mg Route: PO; vg1 11:42 Follow up: Response: No adverse reaction vg1 11:42 Follow up: Response: No adverse reaction jl7 10:32 Drug: NS 0.9% 1000 ml Route: IV; Rate: 1 bolus; Site: left antecubital; vg1 11:42 Follow up: IV Status: Completed infusion; IV Intake: 1000ml vg1 12:02 Drug: Zofran (Ondansetron) 4 mg Route: IVP; Site: left antecubital; vg1 12:12 Follow up: Response: Medication administered at discharge. vg1 12:04 Drug: morphine 4 mg Route: IVP; Infused Over: 4 mins; Site: left antecubital; vg1 12:12 Follow up: Response: Medication administered at discharge. vg1 Medication: 09:20 VIS not applicable for this client. vg1 Intake: 10:35 IV: 1000ml; Total: 1000ml. vg1 11:42 IV: 1000ml; Total: 2000ml. vg1 Outcome: 11:49 Discharge ordered by MD. mariann 12:12 Discharged to home via wheelchair, with family. vg1 12:12 Condition: good 12:12 Discharge instructions given to patient, family, Instructed on discharge instructions, follow up and referral plans. medication usage, Demonstrated understanding of instructions, follow-up care, medications, Prescriptions given X 3. 12:13 Patient left the ED. vg1 Signatures: Dispatcher [employer] EDMS Boy Dallas PA PA jmm Leal, Jahala, MICHELLE RN jl7 Tricia Castellano Amanda, RN RN [id number] Jerri Acuna RN RN vg1 Dixie Wiley 7
[2021-10-22 13:00] VITALS: BP 135/80; O2SAT 98
== END 2021-10-22 12:13 | disposition home or self-care (01) ==
LOC: ER 09:07
DX: N20.1 Calculus of ureter (principal); I10 Essential (primary) hypertension
CPT/HCPCS: 85025; 36415; 81003; 83690; 80053; 76377; 74176; J7030 ×2; J2405 ×2

== ENCOUNTER 2021-11-15 19:13 | Emergency (ER) | payer BC ==
--- OUTSIDE RECORDS SUMMARY | 2021-11-15 19:18 | XMS REPORT | Continuity of Care Document ---
:1960 Author Organization [facility] t Address [address] [place] [address] Care Team Providers Name Role [facility], [facility] Primary Care Physician Unavailable OG PURI Attending Clinician Unavailable OG PURI Attending Clinician Unavailable 1, [facility] Attending Clinician Unavailable Og Puri MD Attending Clinician Only, [facility] Test Attending Clinician Unavailable Doctor Unassigned, [place] Attending Clinician Unavailable Tr Nj Attending Clinician Unavailable Tr Nj Admitting Clinician Unavailable Payers Payer Name Policy Type Policy Number Effective Date Expiration Date S lis DELVALLE [id number] 2020 ADMINISTRATION 00:00:00 [employer] [place] OUT [id number] 2019 OF [facility] 00:00:00 Problems Condition Condition Condition Status Onset Resolution Last Treating Co mments Source Name Details Category Date Date Treatment Clinician Date No known No known Disease Unive rs active active ity of problems problems [facility] Allergies, Adverse Reactions, Alerts Allergy Allergy Status Severity Reaction(s) Onset Inactive Treating Comm ents Source Name Type Date Date Clinician No Known DA Active U 2010-03 [facility] Allergie 2- Clear s 00:00: Saunders 00 [facility] NO KNOWN Drug Active Univers ALLERGIE Class ity of S [facility] Social History Social Habit Start Date Stop Date Quantity Comments Source Exposure to Not sure [facility] SARS-CoV-2 (event) Medica l Branch Sex Assigned At [birth year] [facility] 00:00:00 00:00:00 Medical Branch Smoking Status Start Date Stop Date Source Unknown if ever smoked [facility] Medical Branch Medications Ordered Filled Start Stop Current Ordering Indication Dosage Frequency Signature Comments Components Source Medication Medication Date Date Medication? Clinician (SIG) Name Name ibuprofen Yes ibuprofen Uni vers 400 mg 9-01 400 mg ity of tablet 16:48: tablet [place] 22 TAKE ONE Medical (1) Branch TABLET(S) BY MOUTH EVERY FOUR HOURS NEEDED FOR PAIN. ibuprofen Yes ibuprofen Uni vers 400 mg 9-01 400 mg ity of tablet 16:48: tablet [place] 22 TAKE ONE Medical (1) Branch TABLET(S) BY MOUTH EVERY FOUR HOURS NEEDED FOR PAIN. ibuprofen Yes ibuprofen Uni vers 400 mg 9-01 400 mg ity of tablet 16:48: tablet [place] 22 TAKE ONE Medical (1) Branch TABLET(S) BY MOUTH EVERY FOUR HOURS NEEDED FOR PAIN. ibuprofen Yes ibuprofen Uni vers 400 mg 9-01 400 mg ity of tablet 16:48: tablet [place] 22 TAKE ONE Medical (1) Branch TABLET(S) BY MOUTH EVERY FOUR HOURS NEEDED FOR PAIN. ibuprofen Yes ibuprofen Uni vers 400 mg 9-01 400 mg ity of tablet 11:48: tablet [place] 22 TAKE ONE Medical (1) Branch TABLET(S) BY MOUTH EVERY FOUR HOURS NEEDED FOR PAIN. ibuprofen Yes ibuprofen Uni vers 400 mg 9-01 400 mg ity of tablet 11:48: tablet [place] 22 TAKE ONE Medical (1) Branch TABLET(S) BY MOUTH EVERY FOUR HOURS NEEDED FOR PAIN. ibuprofen Yes ibuprofen Uni vers 400 mg 9-01 400 mg ity of tablet 11:48: tablet [place] 22 TAKE ONE Medical (1) Branch TABLET(S) BY MOUTH EVERY FOUR HOURS NEEDED FOR PAIN. ibuprofen Yes ibuprofen Uni vers 400 mg 9-01 400 mg ity of tablet 11:48: tablet [place] 22 TAKE ONE Medical (1) Branch TABLET(S) [...] MOUTH [place] 1,250 mcg 00 EVERY WEEK [facility] joe (50,000 *DO NOT Branch unit) [...] MOUTH [place] 1,250 mcg 00 EVERY WEEK [facility] joe (50,000 *DO NOT Branch unit) [...] MOUTH [place] 1,250 mcg 00 EVERY WEEK [facility] joe (50,000 *DO NOT Branch unit) [...] TABLET BY ity of tablet 00:00: MOUTH [place] DAILY FOR Medical GOUT Branch atorvastati 2020- Yes TAKE Univer s n 80 mg 1-23 ONE-HALF ity of tablet 00:00: TABLET BY [address] AT [facility] BEDTIME [place] FOR CHOLESTERO L glipiZIDE 2020 Yes TAKE Univers 10 mg 1-23 ONE-HALF ity of tablet 00:00: TABLET BY [address] Medical TWICE A Branch DAY FOR DIABETES allopurinoL 2020 Yes TAKE ONE Un kaitlin 100 mg 1-23 TABLET BY ity of tablet 00:00: MOUTH [place] DAILY FOR Medical GOUT Branch atorvastati 2019-03 Yes TAKE Univer s n 80 mg 1-23 ONE-HALF ity of tablet 00:00: TABLET BY [address] AT [facility] BEDTIME [place] FOR CHOLESTERO L glipiZIDE 2019-03 Yes TAKE Univers 10 mg 1-23 ONE-HALF ity of tablet 00:00: TABLET BY [address] TWICE A Branch DAY FOR DIABETES allopurinoL 2019-03 Yes TAKE ONE Un kaitlin 100 mg 1-23 TABLET BY ity of tablet 00:00: MOUTH [place] DAILY FOR Medical GOUT Branch atorvastati 2019-03 Yes TAKE Univer s n 80 mg 1-23 ONE-HALF ity of tablet 00:00: TABLET BY [address] AT [facility] FOR CHOLESTERO L glipiZIDE 2020 Yes TAKE Univers 10 mg 1-23 ONE-HALF ity of tablet 00:00: TABLET BY [address] TWICE A Branch DAY FOR DIABETES allopurinoL 2019-03 Yes TAKE ONE Un kaitlin 100 mg 1-23 TABLET BY ity of tablet 00:00: MOUTH [place] DAILY FOR Medical GOUT Branch atorvastati 2019- Yes TAKE Univer s n 80 mg 1-23 ONE-HALF ity of tablet 00:00: TABLET BY [address] AT [facility] BEDTIME [place] FOR CHOLESTERO L glipiZIDE 2020- Yes TAKE Univers 10 mg 1-23 ONE-HALF ity of tablet 00:00: TABLET BY [address] Medical TWICE A Branch DAY FOR DIABETES allopurinoL 2019-03 Yes TAKE ONE Un kaitlin 100 mg 1-23 TABLET BY ity of tablet 00:00: MOUTH [place] DAILY FOR Medical GOUT Branch atorvastati 2019- Yes TAKE Univer s n 80 mg 1-23 ONE-HALF ity of tablet 00:00: TABLET BY [address] AT [facility] BEDTIME [place] FOR CHOLESTERO L glipiZIDE 2020 Yes TAKE Univers 10 mg 1-23 ONE-HALF ity of tablet 00:00: TABLET BY [address] TWICE A Branch DAY FOR DIABETES allopurinoL 2019-03 Yes TAKE ONE Un k[place] 100 mg 1-23 TABLET BY ity of tablet 00:00: MOUTH [place] DAILY FOR Medical GOUT Branch atorvastati 2019-03 Yes TAKE Univer s n 80 mg 1-23 ONE-HALF ity of tablet 00:00: TABLET BY [address] [facility] FOR CHOLESTERO L glipiZIDE 2019-03 Yes TAKE Univers 10 mg 1-23 ONE-HALF ity of tablet 00:00: TABLET BY [address] TWICE A Branch DAY FOR DIABETES allopurinoL 2019-03 Yes TAKE ONE Un kaitlni 100 mg 1-23 TABLET BY ity of tablet 00:00: MOUTH [place] DAILY FOR Medical GOUT Branch atorvastati 2019-03 Yes TAKE Univer s n 80 mg 1-23 ONE-HALF ity of tablet 00:00: TABLET BY [address] [facility] FOR CHOLESTERO L glipiZIDE 2019-03 Yes TAKE Univers 10 mg 1-23 ONE-HALF ity of tablet 00:00: TABLET BY [address] TWICE A Branch DAY FOR DIABETES allopurinoL 2019-03 Yes TAKE ONE Un k[place]lin 100 mg 1-23 TABLET BY ity of tablet 00:00: MOUTH [place] DAILY FOR Medical GOUT Branch atorvastati 2019-03 Yes TAKE Univer s n 80 mg 1-23 ONE-HALF ity of tablet 00:00: TABLET BY [address] [facility] FOR CHOLESTERO L glipiZIDE 2019-03 Yes TAKE Univers 10 mg 1-23 ONE-HALF ity of tablet 00:00: TABLET BY [address] TWICE A Branch DAY FOR DIABETES No known No Univers medications ity of [facility] No known No Univers medications ity of [facility] No known No Univers medications it of [facility] Vital Signs Vital Name Observation Time Observation Value Comments Source Systolic blood 2020-10-30 16:46:00 119 mm[Hg] Univer sity of pressure [facility] Diastolic blood 2020-10-30 16:46:00 70 mm[Hg] Unive rsity of [facility] Branch Heart rate 2020-10-30 16:46:00 83 /min Universi ty of [place] [facility] [place] Body temperature 2020-10-30 16:46:00 36.06 [place] Univ ersity of [place] [facility] Respiratory rate 2020-10-30 16:46:00 18 /min Univ ersity of [place] [facility] [place] Body height 2020-10-30 16:46:00 167.6 cm Universi ty of [place] [facility] [place] Body weight 2020-10-30 16:46:00 84.505 kg Universi ty of [place] [facility] Branch BMI 2020-10-30 16:46:00 30.07 kg/m2 Universi ty of [facility] Oxygen saturation in 2020-10-30 16:46:00 97 /min University of Arterial blood by [facility] Pulse oximetry Branch Systolic blood 2020-09-11 14:01:00 124 mm[Hg] Univer sity of pressure [facility] Diastolic blood 2020-09-11 14:01:00 73 mm[Hg] Unive rsity of pressure [facility] Heart rate 2020-09-11 14:01:00 85 /min Universi ty of [place] [facility] [place] Body temperature 2020-09-11 14:01:00 36.28 [place] Univ ersity of [facility] Respiratory rate 2020-09-11 14:01:00 18 /min Univ ersity of [place] [facility] [place] Body height 2020-09-11 14:01:00 167.6 cm Universi ty of [place] [facility] [place] Body weight 2020-09-11 14:01:00 83.28 kg Universi ty of [place] [facility] [place] BMI 2020-09-11 14:01:00 29.63 kg/m2 Universi ty of [place] [facility] [place] Oxygen saturation in 2020-09-11 14:01:00 98 /min University of Arterial blood by [facility] Pulse oximetry Branch Procedures Procedure Date / Time Performing Clinician Source Performed ASSIGNMENT OF BENEFITS 2020-12-06 14:49:44 Doctor Unassigned, No General acute hospital DME/SUPPLY JUSTIFICATION 2020-11-15 05:01:00 Doctor Unassigned, No General acute hospital VACCINATIONS - CONSENTS, 2020-09-20 05:01:00 [facility] EL[facility]IBILITY, HISTORY Name Medical Bra [facility] Encounters Start End Encounter Admission Attending Care Care Encounter Source Date/Time Date/Time Type Type Clinicians Facility Department ID 2021-01-15 2021-01-15 Outpatient R OG PURI [facility] [id number] Univers 10:20:00 10:20:00 OG PURI [id number] ity [facility] 2021-01-15 2021-01-15 Outpatient R OG PURI [facility] [id number] Univers 10:20:00 10:20:00 [facility]G [facility] 2020-12-09 2020-12-09 Outpatient R [facility] [id number] Univers 19:30:00 19:30:00 [id number] ity [facility] 2020-12-09 2020-12-09 Outpatient R OG PURI [facility] [id number] Univers 19:30:00 19:30:00 OG PURI [facility] 2020-12-09 2020-12-09 [employer] 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 Sleep Lab Bed [facility] 1. 2.840.114 [id number] Univers 14:11:49 16:41:49 Visit Og Puri 350.1.13. 10 ity of [place] [id number] [facility] [phone] [facility] 193 Branch 2020-12-06 2020-12-06 Laboratory Only, [facility] Test [facility] 1.2.840. 114 [id number] Univers 09:55:41 10:10:41 Only Og Puri 350.1.13. 10 ity of [place] 4.2.7.2.686 [facility] [phone] [facility] 353 Branch 2020-12-06 2020-12-06 Outpatient R [facility] [id number] Univers 10:00:00 10:00:00 [id number] [facility] 2020-12-06 2020-12-06 Outpatient R [facility] [id number] Univers 10:00:00 10:00:00 [facility] 2020-12-06 2020-12-06 Orders Doctor CHRISTENSEN 1.2.840.114 [id number] Univers 00:00:00 00:00:00 Only Unassigned, [place] [id number] ity of [place] [facility] 4.2.7.2.686 [place] as [phone] [address] 2020-11-15 2020-11-15 Orders Doctor FERMIN 1.2.840.114 [id number] Univers 00:00:00 00:00:00 Only Unassigned, [place] [id number] ity of [place] [facility] 4.2.7.2.686 [place] as [phone] [address] 2020-10-30 2020-10-30 Office Amber [facility] [id number] Univers 11:36:32 11:56:32 Visit Og Martinez 350.1.13.10 ity [facility] 4.2.7.2.686 [place] [phone] Ne dical [facility]5 [facility] 2020-10-30 2020-10-30 Outpatient R OG PURI [facility] [id number] Univers 11:40:00 11:40:00 OG PURI [id number] [facility] 2020-10-30 2020-10-30 Outpatient R OG PURI [facility] [id number] Univers 11:40:00 11:40:00 OG PURI [facility] 2020-09-25 2020-09-25 Outpatient R [facility] [id number] Univers 19:30:00 19:30:00 [id number] [facility] 2020-09-25 2020-09-25 Outpatient R OG PURI [facility] [id number] Univers 19:30:00 19:30:00 OG PURI [facility] 2020-09-25 2020-09-25 [employer] 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 Sleep Lab Bed [facility] 1. 2.840.114 [id number] Univers 15:15:54 17:45:54 Visit Og Puri 350.1.13. 10 it[place].2.686 [place] [phone] [facility] 193 Branch 2020-09-20 2020-09-20 Orders Doctor FERMNI 1.2.840.114 [id number] Univers 00:00:00 00:00:00 Only Unassigned, [place] 350.1.13.10 ity of [place] [facility] 4.2.7.2.686 [place] as [phone] [facility] 009 [place] 2020-09-11 2020-09-11 Office Amber [facility] [id number] Univers 08:48:47 09:42:06 Visit Og [place] 350.1.13.10 it[place].2.686 [place] [facility] [phone] Ne dical nal 085 [facility] 2020-09-11 2020-09-11 Outpatient R OG PURI [facility] [id number] Univers 09:30:00 09:30:00 OG PURI [facility] 2018-07-22 2018-07-23 Inpatient CAMRYN Nj [facility].01 [id number] [facility] 16:29:00 22:36:[address] [place] [address] Results Test Description Test Time Test Comments Results Result Comments Source SURG 2018-07-27 12:56:00 --------RUN DATE: 07/27/18 [facility] - LAB *LIVE* PAGE 1 RUN TIME: 1256 Specimen Inquiry RUN USER: INTERFACE --------PATIENT: JAGDISH CHRISTENSEN V LOC: Messi U #: [id number] AGE/SX: 58/M ROOM: [facility] RE07/22/18[facility] DR: Tr Nj MD : 64 BED: 1 DIS: 07/23/18 STATUS: DIS Lexi TLOC: -------- SPEC #: [id number] RECD: 07/26/18 STATUS: SERA REQ #: [id number] PIOTR: 07/23/[address]: Tr Nj MD ENTERED: 07/26/18 SP TYPE: SURG OTHR DR: No Primary or Family Physician Self Referred Surinder Montalvo MDORDERED: SURG PATH LVL 3 COPIES TO: No Primary [place] [address] [place] [address] [email or web address] [address] [place] [address] HISTOLOGY: TISSUE ID BLK PCS MEGHNA LEV PROCEDURE DISPOSITION ____ ___ ___ ___ GALLBLADDER, NO A 1-2 1 PROCEDURES: SURG PATH LVL 3 (07/26/18) TISSUES: A. GALLBLADDER, NOS - GALLBLADDER CLINICAL HISTORY ABD PAIN CPT CODES CPT CODE(S): 76130 , , , , , , CONTINUED ON NEXT PAGE --------RUN DATE: 07/27/18 [facility] - LAB *LIVE* PAGE 2 RUN TIME: 1256 Specimen Inquiry RUN USER: INTERFACE --------SPEC #: [facility]:[id number] PATIENT: JAGDISH CHRISTENSEN V #[id number] (Continued) FINAL DIAGNOSIS Gallbladder, laparoscopic cholecystectomy: MILD [...] x 0.7 x 0.3 cm in aggregate. Stocking Inspector section submitted as A. /ba/pdb Grossing performed at [facility] Pathology, [address] [facility], [address], [place] [address]. Marsh Buggy Operator: Finesse Fuentes M.D. MICROSCOPIC DESCRIPTION Gallbladder. Sections [...] ALKP) 81 Unit/L 50-136 N GLUCOSE BEDSIDE [id number] 16:44:00 Test Item Value Reference Range Interpretation Comments GLUCOSE BEDSIDE TESTING (test code 147 mg/dL 70-110 H = GLUBED) CBC W/AUTO [id number] 16:07:00 Test Item Value Reference Range Interpretation [...] = NO DIFF/SCN CRITERIA MDIFF) GLUCOSE BEDSIDE [id number] 13:00:00 Test Item Value Reference Range Interpretation Comments GLUCOSE BEDSIDE TESTING (test code 143 mg/dL 70-110 H = GLUBED) GLUCOSE BEDSIDE [id number] 10:06:00 Test Item Value Reference Range Interpretation Comments GLUCOSE BEDSIDE TESTING (test code 113 mg/dL 70-110 H = GLUBED) GLUCOSE BEDSIDE [id number] 07:51:00 Test Item Value Reference Range Interpretation Comments GLUCOSE BEDSIDE TESTING (test code 131 mg/dL 70-110 H = GLUBED) COMPREHENSIVE METABOLIC [id number] 07:11:00 Test Item Value Reference Range Interpretation [...] TOTAL (test code = ALKP) COMPREHENSIVE METABOLIC [id number] 06:59:00 Test Item Value Reference Range Interpretation [...] Unit/L 50-136 code = ALKP) CBC W/AUTO [id number] 06:53:00 Test Item Value Reference Range Interpretation [...] DIFF/SCN CRITERIA MDIFF) - XR CHEST 1 [id number] 23:12:00 Name: JAGDISH CHRISTENSEN V [facility]ly [facility] : 1960 Age/S: 58 / M [id number] Unit #: [id number] Loc: [place] [address] Phys: Tr Nj MD Acct: [id number] Dis Date: Status: ADMIN PHONE #: [phone] Exam Date: 07/22/2018 2300 FAX #: Reason: FOR SURGERY IN AM. EXAMS: CPT: [id number] XR CHEST 1 V 45951 Fluoro Time: DAP (Gy m2): Air Kerma [...] and : 1960 Age/S: 58 / M [address] Unit #: [id number] Loc: [place] [address] Phys: Tr Nj MD Acct: [id number] Dis Date: Status: ADM IN PHONE #: [phone] Exam Date: 07/22/2018 2300 FAX #: Reason: FOR SURGERY IN AM. EXAMS: CPT: [id number] XR CHEST 1 V 49225 Fluoro Time: DAP (Gy m2): Air Kerma (mGy): (Continued) Technologist: Evelia Lucio, RT(R)(CT) Trnscb Date/Time: 07/22/2018 (2312) [email or web address] Orig Print D/T: S: 07/22/2018 (2315) PAGE 2 Signed Report- CT ABD PELVIS [id number] 19:50:00 Name: JAGDISH CHRISTENSEN : 1960 Age/S: 58 / M [address] Unit #: [id number] Loc: [place] [address] Phys: Tr Nj MD Acct: [id number] Dis Date: Status: ADM IN PHONE #: [phone] Exam Date: 07/22/20181927 FAX #: Reason: Abd pain EXAMS: CPT: [id number] CTABD PELVIS W/CONT 410[address] CT ABDOMEN AND PELVIS WITH IV CONTRAST [...] Signed Report (CONTINUED) Name: JAGDISH CHRISTENSEN Lane [facility] : 1960 Age/S: 58/ M [address] Unit #: [id number] Loc: [place] [address] Phys: Tr Nj MD Acct: [id number] Dis Date: Status: ADM IN PHONE #: [phone] Exam Date: 07/22/20181927 FAX #: Reason: Abd pain EXAMS: CPT: [id number] CT ABD PELVIS W/CONT 78703 (Continued) Cholelithiasis. Minimal inflammatory changes and probable [...] S: 07/22/2018 (1952) PAGE 2 Signed ReportLACTIC [id number] 18:23:00 Test Item Value Reference Range Interpretation Comments LACTIC ACID (test code = LACT) 1.4 mmol/L 0.4-2.0 N COMPREHENSIVE METABOLIC [id number] 18:09:00 Test Item Value Reference Range Interpretation [...] = LDL/HDL) 1.23 Ratio 1.48-3.22 Avg L [id number] 18:09:00 Test Item Value Reference Range Interpretation Comments PHOSPHOROUS (test code = PHOS) 2.5 MG/DL 2.5-4.9 N RULE OUT LA [id number] 18:09:00 Test Item Value Reference Range Interpretation [...] nume rical results may dustin yby method. [id number] 18:09:00 Test Item Value Reference Range Interpretation Comments LIPASE (test code = LIP) 457 Unit/L 114-286 H [id number] 18:09:00 Test Item Value Reference Range Interpretation Comments MAGNESIUM (test code = MAG) 2.0 MG/DL 1.8-2.4 N COMPREHENSIVE METABOLIC [id number] 18:05:00 Test Item Value Reference Range Interpretation [...] (test code = LDL/HDL) Ratio 1.48-3.22 Avg [id number] 18:05:00 Test Item Value Reference Range Interpretation Comments PHOSPHOROUS (test code = PHOS) MG/DL 2.5-4.9 RULE OUT LA [id number] 18:05:00 Test Item Value Reference Range Interpretation Comments CREATINE KINASE (CK) (test code = CK) Unit/L 26-192 TROPONIN-I (test code = TROPI) NG/ML 0.000-0.045 [id number] 18:05:00 Test Item Value Reference Range Interpretation Comments LIPASE (test code = LIP) Unit/L 114-286 [id number] 18:05:00 Test Item Value Reference Range Interpretation Comments MAGNESIUM (test code = MAG) MG/DL 1.8-2.4 PROTHROMBIN [id number] 17:54:00 Test Item Value Reference Range Interpretation Comments PT PATIENT (test code = PTP) 11.2 SECONDS 9.3-12.9 N INTERNATIONAL NORMAL RATIO 0.97 INR Unit 0.8-1.2 N (test code = INR) CBC W/AUTO [id number] 17:48:00 Test Item Value Reference Range Interpretation [...]
[2021-11-15 20:38] LABS: Absolute Lymphocytes (CBC) 1.4 K/uL (0.7-4.9); Hematocrit 43.2 % (39.6-49.0); Lymphocytes % 11.9 % (15.3-44.8); MCV 85.4 fL (80-100); MPV 9.2 fL (7.6-11.3); RBC Red Blood Cell Count 5.05 M/uL (4.33-5.43)
[2021-11-15 20:43] LABS: Protime INR 1.17
[2021-11-15 21:11] LABS: Albumin 3.7 g/dL (3.4-5.0); Bilirubin Direct 0.5 mg/dL (0-0.2); Magnesium 1.8 mg/dL (1.8-2.4); Potassium 3.9 mmol/L (3.5-5.1); Protein, Total 7.5 g/dL (6.4-8.2); Troponin High Sensitivity 28.6 pg/mL (<58.9)
--- NOTE | 2021-11-15 21:22 | RAD REPORT ---
EXAM DESCRIPTION: Mario Single View11/15/2021 9:14 pm CLINICAL HISTORY: Shortness of breath COMPARISON: 2019 FINDINGS: The lungs appear clear of acute infiltrate. The heart is mildly enlarged. Postsurgical changes involve chest. IMPRESSION: No acute abnormalities displayed
[2021-11-15] MEDS ORDERED: FUROSEMIDE 40 MG/4 ML VIAL ONE (21:41)
--- NOTE | 2021-11-15 23:35 | ER ---
Nurse's Notes [facility] Name: Ivory Chery Age: 61 yrs Sex: Male : 1960 Arrival Date: 11/15/2021 Time: 19:15 Bed 16 Private MD: Diagnosis: Unspecified combined systolic (congestive) and diastolic (congestive) heart failure Presentation: 11/15 19:28 Chief complaint: Patient states: "I am having shortness of breath, tightness in my hb chest. I am also having trouble sleeping. I just had the pneumonia shot and shingle shots yesterday.". Chief complaint: Patient states: "This chest tightness has been going on for two-three weeks. I have just been ignoring it.". Coronavirus screen: Vaccine status: Patient reports receiving the 2nd dose of the covid vaccine. Pzifer. Ebola Screen: Patient negative for fever greater than or equal to 101.5 degrees Fahrenheit, and additional compatible Ebola Virus Disease symptoms Patient denies exposure to infectious person. Patient denies travel to an Ebola-affected area in the 21 days before illness onset. Initial Sepsis Screen: Does the patient meet any 2 criteria? No. Patient's initial sepsis screen is negative. Does the patient have a suspected source of infection? No. Patient's initial sepsis screen is negative. Risk Assessment: Do you want to hurt yourself or someone else? Patient reports no desire to harm self or others. Onset of symptoms is unknown. 19:28 Method Of Arrival: Ambulatory hb 19:28 Acuity: TRENT 2 hb Triage Assessment: 19:31 General: Appears in no apparent distress. Behavior is calm, cooperative, appropriate hb for age. Pain: Pain currently is 2 out of 10 on a pain scale. Cardiovascular: Capillary refill < 3 seconds. Historical: - Allergies: 19:30 No Known Allergies; hb - Home Meds: 19:30 Metoprolol Tartrate Oral [Active]; Metformin Oral [Active]; losartan Oral [Active]; hb Glipizide Oral [Active]; atorvastatin Oral [Active]; Allopurinol Oral [Active]; - PMHx: 19:30 CAD; Diabetes - NIDDM; Gout; Hyperlipidemia; Hypertension; Angina pectoris; hb - Immunization history:: Adult Immunizations up to date, Pneumococcal vaccine is up to date. - Social history:: Smoking status: Patient denies any tobacco usage or history of. Screenin:17 Abuse screen: Denies threats or abuse. Denies injuries from another. Nutritional lg3 screening: No deficits noted. Tuberculosis screening: No symptoms or risk factors identified. Fall Risk None identified. Assessment: 20:17 General: Appears in no apparent distress. comfortable, Behavior is calm, cooperative. lg3 Pain: Complains of pain in chest Pain does not radiate. Pain currently is 4 out of 10 on a pain scale. Quality of pain is described as pressure, Pain began PT STATES SEVERAL WEEKS AGO. Neuro: No deficits noted. Level of Consciousness is awake, alert, obeys commands, Oriented to person, place, time, situation. Cardiovascular: Reports chest pain, shortness of breath, Capillary refill < 3 seconds Clubbing of nail beds is absent JVD is absent Patient's skin is warm and dry. Respiratory: No deficits noted. Airway is patent Trachea midline Respiratory effort is even, unlabored, Respiratory pattern is regular, symmetrical. GI: No deficits noted. No signs and/or symptoms were reported involving the gastrointestinal system. Abdomen is round non-distended, Bowel sounds present X 4 quads. Abd is soft and non tender X 4 quads. : No deficits noted. No signs and/or symptoms were reported regarding the genitourinary system. EENT: No deficits noted. No signs and/or symptoms were reported regarding the EENT system. Derm: No deficits noted. No signs and/or symptoms reported regarding the dermatologic system. Skin is intact, is healthy with good turgor, Skin is dry, Skin is normal, Skin temperature is warm. Musculoskeletal: No deficits noted. No signs and/or symptoms reported regarding the musculoskeletal system. Circulation, motion, and sensation intact. Range of motion: intact in all extremities. 21:06 Reassessment: Patient appears in no apparent distress at this time. No changes from lg3 previously documented assessment. Patient and/or family updated on plan of care and expected duration. Pain level reassessed. Patient is alert, oriented x 3, equal unlabored respirations, skin warm/dry/pink. 22:17 Reassessment: Patient appears in no apparent distress at this time. No changes from lg3 previously documented assessment. Patient and/or family updated on plan of care and expected duration. Pain level reassessed. Patient is alert, oriented x 3, equal unlabored respirations, skin warm/dry/pink. 23:27 General: pt ambulated around unit. denies any SOB at this time. states "i feel so much lg3 better and feel like i can breathe now" . 11/16 00:03 Reassessment: Patient states feeling better. Patient states symptoms have improved. tw5 Vital Signs: 11/15 19:28 BP 127 / 84; Pulse 93; Resp 18; Temp 98.6; Pulse Ox 97% on R/A; Weight 85.73 kg; Height hb 5 ft. 6 in. (167.64 cm); Pain 2/10; 20:17 BP 131 / 88; Pulse 81; Resp 26 S; Pulse Ox 99% on R/A; lg3 21:06 BP 120 / 84; Pulse 90; Resp 24; Pulse Ox 97% on R/A; lg3 22:17 BP 121 / 88; Pulse 89; Resp 22 S; Pulse Ox 97% on R/A; lg3 11/16 00:02 BP 127 / 78; Pulse 86; Resp 16; Pulse Ox 99% on R/A; Pain 0/10; tw5 11/15 19:28 Body Mass Index 30.51 (85.73 kg, 167.64 cm) hb ED Course: 11/15 19:15 Patient arrived in ED. am2 19:30 Triage completed. hb 19:31 Arm band placed on. hb 19:35 Robbie Davila PA is PHCP. cp 19:35 Robbie Hanson MD is Attending Physician. cp 20:04 Dayana Jones, RN is Primary Nurse. lg3 20:04 COVID-19 SARS RT PCR (Document "Date of Onset" if Symptomatic) Sent. lg3 20:06 Patient has correct armband on for positive identification. Placed in gown. Bed in low mh5 position. Side rails up X 1. Adult w/ patient. Warm blanket given. clinical research monitor on. Pulse ox on. NIBP on. 20:06 COVID swab sent to lab. mh5 20:17 Basic Metabolic Panel Sent. lg3 20:17 CBC with Diff Sent. lg3 20:17 LFT's Sent. lg3 20:17 Magnesium Sent. lg3 20:17 NT PRO-BNP Sent. lg3 20:17 PT-INR Sent. lg3 20:17 Troponin HS Sent. lg3 20:17 Inserted saline lock: 20 gauge in right antecubital area, using aseptic technique. lg3 Blood collected. Patient maintains SpO2 saturation greater than 95% on room air. 21:16 XRAY Chest (1 view) In Process Unspecified. EDMS 23:34 Jasper Jamil MD is Referral Physician. cp 11/16 00:03 No provider procedures requiring assistance completed. IV discontinued, intact, tw5 bleeding controlled, No redness/swelling at site. Pressure dressing applied. Administered Medications: 11/15 21:36 Drug: Lasix (furosemide) 40 mg Route: IVP; Site: right antecubital; lg3 11/16 00:02 Follow up: Response: No adverse reaction tw5 Medication: 00:03 VIS not applicable for this client. tw5 Outcome: 11/15 23:34 Discharge ordered by . cp 11/16 00:03 Discharged to home ambulatory. tw5 Condition: good Discharge instructions given to patient, Instructed on discharge instructions, follow up and referral plans. Demonstrated understanding of instructions, follow-up care, medications, Prescriptions given X 1. 00:03 Patient left the ED. tw5 Signatures: Dispatcher [employer] EDUT Robbie Davila PA PA cp Mariza Tolentino RN RN Mae Lacey 5 Tricia Castellano Lacie, RN RN lg3 Kinjal Welch tw5 Corrections: (The following items were deleted from the chart) 11/15 19:31 19:28 Acuity: TRENT 3 hb hb 22:19 20:17 BP 131 / 88; Pulse 81bpm; Resp 19bpm; Spontaneous; Pulse Ox 99% RA; lg3 lg3 22:19 21:06 BP 120 / 84; Pulse 90bpm; Resp 19bpm; Pulse Ox 99% RA; lg3 lg3
--- NOTE | 2021-11-15 23:35 | EDPHYS ---
Physician Documentation [facility] Name: Ivory Chery Age: 61 yrs Sex: Male : 1960 Arrival Date: 11/15/2021 Time: 19:15 Bed 16 Private MD: ED Physician Robbie Hanson HPI: 11/15 19:55 This 61 yrs old Male presents to ER via Ambulatory with complaints of Chest cp Tightness, Shortness Of Breath. 19:55 The patient has shortness of breath with light activity. cp 19:55 Onset: The symptoms/episode began/occurred for past 2-3 weeks. Duration: The symptoms cp are continuous, and are steadily getting worse. The patient's shortness of breath is aggravated by exertion, light activity, is alleviated by rest. Associated signs and symptoms: Pertinent positives: chest tightness, but denies chest pain, Pertinent negatives: productive cough, diaphoresis, dizziness, fever, vomiting, syncope. Severity of symptoms: in the emergency department the symptoms have improved moderately. The patient has not experienced similar symptoms in the past. Patient reports PSHX of cardiac bypass surgery. Monitoring And Evaluation Advisor is DR Jamil and last visit was June 2021. Historical: - Allergies: 19:30 No Known Allergies; hb - Home Meds: 19:30 Metoprolol Tartrate Oral [Active]; Metformin Oral [Active]; losartan Oral [Active]; hb Glipizide Oral [Active]; atorvastatin Oral [Active]; Allopurinol Oral [Active]; - PMHx: 19:30 CAD; Diabetes - NIDDM; Gout; Hyperlipidemia; Hypertension; Angina pectoris; hb - Immunization history:: Adult Immunizations up to date, Pneumococcal vaccine is up to date. - Social history:: Smoking status: Patient denies any tobacco usage or history of. ROS: 20:00 Constitutional: Negative for body aches, chills, fever, poor PO intake. cp 20:00 Eyes: Negative for injury, pain, redness, and discharge. cp 20:00 ENT: Negative for drainage from ear(s), ear pain, sore throat, difficulty swallowing, difficulty handling secretions. 20:00 Cardiovascular: Positive for chest tightness with exertion, Negative for chest pain, edema, palpitations. 20:00 Respiratory: Positive for shortness of breath, on exertion. Negative for cough, wheezing. 20:00 Abdomen/GI: Negative for abdominal pain, nausea, vomiting, and diarrhea. 20:00 Back: Negative for pain at rest, pain with movement. cp 20:00 Neuro: Negative for altered mental status, headache, numbness, syncope, weakness. 20:00 All other systems are negative. Exam: 20:05 ECG was reviewed by the Attending Physician. cp 20:08 Constitutional: The patient appears in no acute distress, alert, awake, comfortable, cp non-diaphoretic, non-toxic, well developed, well nourished. 20:08 Head/Face: Normocephalic, atraumatic. cp 20:08 Eyes: Periorbital structures: appear normal, Conjunctiva: normal, no exudate, no injection, Sclera: no appreciated abnormality, Lids and lashes: appear normal, bilaterally. 20:08 ENT: External ear(s): are unremarkable, Nose: is normal, Mouth: Lips: moist, Oral mucosa: pink and intact, moist. 20:08 Chest/axilla: Inspection: normal, Palpation: crepitus, is not appreciated, tenderness, is not appreciated. 20:08 Cardiovascular: Rate: normal, Rhythm: regular, Edema: lower leg bilaterally, very mild, JVD: is not appreciated. 20:08 Respiratory: the patient does not display signs of respiratory distress, Respirations: normal, no use of accessory muscles, no retractions, labored breathing, is not present, Breath sounds: are clear throughout, no decreased breath sounds, no stridor, no wheezing. 20:08 Abdomen/GI: Inspection: abdomen appears normal, Palpation: abdomen is soft and non-tender, in all quadrants. 20:08 Back: pain, is absent, ROM is normal. 20:08 Skin: no rash present. 20:08 Neuro: Orientation: to person, place \\T\\ time. Mentation: is normal, Cerebellar function: is grossly normal, Motor: moves all fours, strength is normal, Sensation: is normal. Vital Signs: 19:28 BP 127 / 84; Pulse 93; Resp 18; Temp 98.6; Pulse Ox 97% on R/A; Weight 85.73 kg; Height hb 5 ft. 6 in. (167.64 cm); Pain 2/10; 20:17 BP 131 / 88; Pulse 81; Resp 26 S; Pulse Ox 99% on R/A; lg3 21:06 BP 120 / 84; Pulse 90; Resp 24; Pulse Ox 97% on R/A; lg3 22:17 BP 121 / 88; Pulse 89; Resp 22 S; Pulse Ox 97% on R/A; lg3 18 00:02 BP 127 / 78; Pulse 86; Resp 16; Pulse Ox 99% on R/A; Pain 0/10; tw5 11/15 19:28 Body Mass Index 30.51 (85.73 kg, 167.64 cm) hb MDM: 11/15 19:37 Patient medically screened. chely 20:00 Differential diagnosis: CHF exacerbation, Chronic Obstructive Pulmonary Disease cp Myocardial Infarction pneumonia, Pneumothorax pulmonary edema, Pulmonary Embolism Unstable Angina. 23:45 Data reviewed: vital signs, nurses notes, lab test result(s), EKG, radiologic studies, cp plain films. Test interpretation: by ED physician or midlevel provider: ECG, plain radiologic studies. Counseling: I had a detailed discussion with the patient and/or guardian regarding: the historical points, exam findings, and any diagnostic results supporting the discharge/admit diagnosis, lab results, radiology results. Refusal of service: The patient/guardian displays adequate decision making capability and despite a detailed discussion of alternatives, benefits, risks, and consequences refuses: Admission to the hospital for further work-up and treatment. ED course: VSS> Patient reports symptoms markedly improved with meds and requesting discharge to home. Reports he will f/u with DR Jamil next week. 11/15 19:47 Order name: Basic Metabolic Panel; Complete Time: 21:18 11/15 21:18 Interpretation: Normal except: GLUC 175; BUN 19; CRE 1.45; GFR 56. 11/15 19:47 Order name: CBC with Diff; Complete Time: 21:05 11/15 21:05 Interpretation: Normal except: WBC 11.50; SILVER% 77.1; LYM% 11.9; NEUT A 8.9. 11/15 19:47 Order name: LFT's; Complete Time: 21:18 11/15 21:18 Interpretation: Normal except: AST 42; ALT 79; BILIT 2.0; BILID 0.5; GLOB 3.8; A/G 1.0. 11/15 19:47 Order name: Magnesium; Complete Time: 21:18 cp 11/15 19:47 Order name: NT PRO-BNP; Complete Time: 21:18 11/15 21:19 Interpretation: Abnormal: NT PRO-BNP 4226. 11/15 19:47 Order name: PT-INR; Complete Time: 21:05 11/15 19:47 Order name: Troponin HS; Complete Time: 21:18 11/15 21:19 Interpretation: Troponin HS 28.6; Reviewed. 11/15 19:47 Order name: XRAY Chest (1 view); Complete Time: 21:35 11/15 21:35 Interpretation: Report review. 11/15 19:47 Order name: EKG; Complete Time: 19:48 11/15 19:47 Order name: Cardiac monitoring; Complete Time: 20:05 11/15 19:47 Order name: EKG - Nurse/Tech; Complete Time: 20:05 11/15 19:47 Order name: IV Saline Lock; Complete Time: 20:16 11/15 19:47 Order name: COVID-19 SARS RT PCR (Document "Date of Onset" if Symptomatic); Complete cp Time: 21:05 11/15 19:47 Order name: Labs collected and sent; Complete Time: 20:16 11/15 19:47 Order name: O2 Per Protocol; Complete Time: 20:16 11/15 19:47 Order name: O2 Sat Monitoring; Complete Time: 20:16 cp EC:05 Rate is 90 beats/min. Rhythm is regular. KS interval is prolonged at 208 msec. QRS cp interval is prolonged at 136 msec. QT interval is normal. T waves are Inverted in leads I, aVL, aVR. Interpreted by me. Reviewed by me. Administered Medications: 21:36 Drug: Lasix (furosemide) 40 mg Route: IVP; Site: right antecubital; lg3 11/16 00:02 Follow up: Response: No adverse reaction tw5 Disposition Summary: 11/15/21 23:34 Discharge Ordered Location: Home cp Problem: new cp Symptoms: have improved cp Condition: Stable cp Diagnosis - Unspecified combined systolic (congestive) and diastolic (congestive) heart failure cp Followup: cp - With: Jasper Jamil MD - When: 2 - 3 days - Reason: Recheck today's complaints Discharge Instructions: - Discharge Summary Sheet cp - Heart Failure, Diagnosis cp - Aspirin and Your Heart cp Forms: - Medication Reconciliation Form cp - Thank You Letter cp - Antibiotic Education cp - Prescription Opioid Use cp Prescriptions: - Lasix 20 mg Oral Tablet - take 1 tablet by ORAL route once daily for 5 days; 5 tablet; Refills: 0, cp Product Selection Permitted Signatures: Dispatcher [employer] Robbie Kurtz MD MD cha Page, Corey, PA PA cp Baxter, Heather, RN RN Dayana Jung RN RN 3 Kinjal Welch [facility]
[2021-11-17 11:33] VITALS: TEMP 98.6
[2021-11-17 11:42] VITALS: BP 127/78; O2SAT 99
--- NOTE | 2021-11-19 06:43 | EKG ---
Test Date: 2021-11-15 Test Time: 19:57:15 Partnership Marketing Manager: ARA MEASUREMENT RESULTS: Intervals: Rate: 90 DC: 208 QRSD: 136 QT: 384 QTc: 469 Donna: P: 41 DC: 208 QRS: -61 T: 92 INTERPRETIVE STATEMENTS: Normal sinus rhythm Left axis deviation Nonspecific intraventricular block Nonspecific T wave abnormality Abnormal ECG No previous ECG available for comparison Electronically Signed On 11-19-21 06:32:52 CDT by Jasper Jamil
== END 2021-11-16 00:03 | disposition home or self-care (01) ==
LOC: ER 19:13
DX: I50.40 Unspecified combined systolic (congestive) and diastolic (congestive) heart failure (principal); I10 Essential (primary) hypertension; Z20.822 Contact with and (suspected) exposure to COVID-19
CPT/HCPCS: 93005; 85025; 80048; 36415; 83735; 85610; 80076; 84484; 83880; 71045; 96374; 99285; U0003; J1940

== ENCOUNTER 2022-04-12 13:25 | Emergency (ER) | payer BC, OTHER ==
--- OUTSIDE RECORDS SUMMARY | 2022-04-12 13:29 | XMS REPORT | Continuity of Care Document ---
:1960 Author Organization [facility] t Address [address] [place] [address] Care Team Providers Name Role [facility], [facility] Primary Care Physician Unavailable OG PURI Attending Clinician Unavailable OG PURI Attending Clinician Unavailable 1, [facility] Attending Clinician Unavailable Og Puri MD Attending Clinician Only, [facility] Test Attending Clinician Unavailable Doctor Unassigned, [place] Attending Clinician Unavailable Tr Nj Attending Clinician Unavailable Tr Nj Admitting Clinician Unavailable Payers Payer Name Policy Type Policy Number Effective Date Expiration Date S lis DELVALLE [id number] 2020 ADMINISTRATION 00:00:00 [employer] [place] - OUT [id number] 2019 OF [facility] 00:00:00 Problems Condition Condition Condition Status Onset Resolution Last Treating Co mments Source Name Details Category Date Date Treatment Clinician Date No known No known Disease Unive rs active active ity of problems problems [facility] Allergies, Adverse Reactions, Alerts Allergy Allergy Status Severity Reaction(s) Onset Inactive Treating Comm ents Source Name Type Date Date Clinician No Known DA Active U 2010-03 [facility] Allergie 2- Clear s 00:00: Saunders 00 [facility] NO KNOWN Drug Active Univers ALLERGIE Class ity of S [facility] Social History Social Habit Start Date Stop Date Quantity Comments Source Exposure to Not sure [facility] SARS-CoV-2 (event) Medica l Branch Sex Assigned At [birth year] [facility] 00:00:00 00:00:00 Medical Branch Smoking Status Start Date Stop Date Source Unknown if ever smoked [facility] Medical Branch Medications Ordered Filled Start Stop Current Ordering Indication Dosage Frequency Signature Comments Components Source Medication Medication Date Date Medication? Clinician (SIG) Name Name ibuprofen Yes ibuprofen Uni vers 400 mg 9-01 400 mg ity of tablet 16:48: tablet [place] 22 TAKE ONE Medical (1) Branch TABLET(S) BY MOUTH EVERY FOUR HOURS NEEDED FOR PAIN. ibuprofen Yes ibuprofen Uni vers 400 mg 9-01 400 mg ity of tablet 16:48: tablet [place] 22 TAKE ONE Medical (1) Branch TABLET(S) BY MOUTH EVERY FOUR HOURS NEEDED FOR PAIN. ibuprofen Yes ibuprofen Uni vers 400 mg 9-01 400 mg ity of tablet 16:48: tablet [place] 22 TAKE ONE Medical (1) Branch TABLET(S) BY MOUTH EVERY FOUR HOURS NEEDED FOR PAIN. ibuprofen Yes ibuprofen Uni vers 400 mg 9-01 400 mg ity of tablet 16:48: tablet [place] 22 TAKE ONE Medical (1) Branch TABLET(S) BY MOUTH EVERY FOUR HOURS NEEDED FOR PAIN. ibuprofen Yes ibuprofen Uni vers 400 mg 9-01 400 mg ity of tablet 11:48: tablet [place] 22 TAKE ONE Medical (1) Branch TABLET(S) BY MOUTH EVERY FOUR HOURS NEEDED FOR PAIN. ibuprofen Yes ibuprofen Uni vers 400 mg 9-01 400 mg ity of tablet 11:48: tablet [place] 22 TAKE ONE Medical (1) Branch TABLET(S) BY MOUTH EVERY FOUR HOURS NEEDED FOR PAIN. ibuprofen Yes ibuprofen Uni vers 400 mg 9-01 400 mg ity of tablet 11:48: tablet [place] 22 TAKE ONE Medical (1) Branch TABLET(S) BY MOUTH EVERY FOUR HOURS NEEDED FOR PAIN. ibuprofen Yes ibuprofen Uni vers 400 mg 9-01 400 mg ity of tablet 11:48: tablet [place] 22 TAKE ONE Medical (1) Branch TABLET(S) [...] 00 DAILY FOR Medical BLOOD Branch PRESSURE metoprolol Yes TAKE ONE Uni vers succinate [...] MOUTH [place] 1,250 mcg 00 EVERY WEEK [facility] joe (50,000 *DO NOT Branch unit) CRUSH* [...] FOR Medical DIABETES Branch *DO NOT CRUSH* allopurinoL 2019-03 Yes TAKE ONE Un kaitlin 100 mg 1-23 TABLET BY ity of tablet 00:00: MOUTH [place] DAILY FOR Medical GOUT Branch atorvastati 2020- Yes TAKE Univer s n 80 mg 1-23 ONE-HALF ity of tablet 00:00: TABLET BY [address] AT [facility] BEDTIME [place] FOR CHOLESTERO L glipiZIDE 2020 Yes TAKE Univers 10 mg 1-23 ONE-HALF ity of tablet 00:00: TABLET BY [address] Medical TWICE A Branch DAY FOR DIABETES allopurinoL 2020 Yes TAKE ONE Un kaitlin 100 mg 1-23 TABLET BY ity of tablet 00:00: MOUTH [place] DAILY FOR Medical GOUT Branch atorvastati 2019-03 Yes TAKE Univer s n 80 mg 1-23 ONE-HALF ity of tablet 00:00: TABLET BY [address] AT [facility] BEDTIME [place] FOR CHOLESTERO L glipiZIDE 2019-03 Yes TAKE Univers 10 mg 1-23 ONE-HALF ity of tablet 00:00: TABLET BY [address] TWICE A Branch DAY FOR DIABETES allopurinoL 2019-03 Yes TAKE ONE Un kaitlin 100 mg 1-23 TABLET BY ity of tablet 00:00: MOUTH [place] DAILY FOR Medical GOUT Branch atorvastati 2019-03 Yes TAKE Univer s n 80 mg 1-23 ONE-HALF ity of tablet 00:00: TABLET BY [address] AT [facility] FOR CHOLESTERO L glipiZIDE 2020 Yes TAKE Univers 10 mg 1-23 ONE-HALF ity of tablet 00:00: TABLET BY [address] TWICE A Branch DAY FOR DIABETES allopurinoL 2019-03 Yes TAKE ONE Un kait[place] 100 mg 1-23 TABLET BY ity of tablet 00:00: MOUTH [place] DAILY FOR Medical GOUT Branch atorvastati 2019- Yes TAKE Univer s n 80 mg 1-23 ONE-HALF ity of tablet 00:00: TABLET BY [address] [facility] BEDTIME [place] FOR CHOLESTERO L glipiZIDE 2020- Yes TAKE Univers 10 mg 1-23 ONE-HALF ity of tablet 00:00: TABLET BY [address] Medical TWICE A Branch DAY FOR DIABETES allopurinoL 2019-03 Yes TAKE ONE Un kait[place] 100 mg 1-23 TABLET BY ity of tablet 00:00: MOUTH [place] DAILY FOR Medical GOUT Branch atorvastati 2019- Yes TAKE Univer s n 80 mg 1-23 ONE-HALF ity of tablet 00:00: TABLET BY [address] [facility] BEDTIME [place] FOR CHOLESTERO L glipiZIDE 2020 Yes TAKE Univers 10 mg 1-23 ONE-HALF ity of tablet 00:00: TABLET BY [address] TWICE A Branch DAY FOR DIABETES allopurinoL 2019-03 Yes TAKE ONE Un kait[place] 100 mg 1-23 TABLET BY ity of tablet 00:00: MOUTH [place] DAILY FOR Medical GOUT Branch atorvastati 2019-03 Yes TAKE Univer s n 80 mg 1-23 ONE-HALF ity of tablet 00:00: TABLET BY [address] [facility] FOR CHOLESTERO L glipiZIDE 2019-03 Yes TAKE Univers 10 mg 1-23 ONE-HALF ity of tablet 00:00: TABLET BY [address] TWICE A Branch DAY FOR DIABETES allopurinoL 2019-03 Yes TAKE ONE Un k[place] 100 mg 1-23 TABLET BY ity of tablet 00:00: MOUTH [place] DAILY FOR Medical GOUT Branch atorvastati 2019-03 Yes TAKE Univer s n 80 mg 1-23 ONE-HALF ity of tablet 00:00: TABLET BY [address] [facility] FOR CHOLESTERO L glipiZIDE 2019-03 Yes TAKE Univers 10 mg 1-23 ONE-HALF ity of tablet 00:00: TABLET BY [address] TWICE A Branch DAY FOR DIABETES allopurinoL 2019-03 Yes TAKE ONE Un kait[place] 100 mg 1-23 TABLET BY ity of tablet 00:00: MOUTH [place] DAILY FOR Medical GOUT Branch atorvastati 2019-03 Yes TAKE Univer s n 80 mg 1-23 ONE-HALF ity of tablet 00:00: TABLET BY [address] [facility] FOR CHOLESTERO L glipiZIDE 2019-03 Yes TAKE Univers 10 mg 1-23 ONE-HALF ity of tablet 00:00: TABLET BY [address] TWICE A Branch DAY FOR DIABETES No known No Univers medications ity of [facility] No known No Univers medications ity of [facility] No known No Univers medications it of [facility] Vital Signs Vital Name Observation Time Observation Value Comments Source Systolic blood 2020-10-30 16:46:00 119 mm[Hg] Univer sity of pressure [facility] Diastolic blood 2020-10-30 16:46:00 70 mm[Hg] Unive rsity of [facility] Branch Heart rate 2020-10-30 16:46:00 83 /min Universi ty of [place] Medical [place] Body temperature 2020-10-30 16:46:00 36.06 [place] Univ ersity of [place] [facility] Branch Respiratory rate 2020-10-30 16:46:00 18 /min Univ ersity of [place] [facility] [place] Body height 2020-10-30 16:46:00 167.6 cm Universi ty of [place] [facility] [place] Body weight 2020-10-30 16:46:00 84.505 kg Universi ty of [place] [facility] Branch BMI 2020-10-30 16:46:00 30.07 kg/m2 Universi ty of [facility] Oxygen saturation in 2020-10-30 16:46:00 97 /min University of Arterial blood by [facility] Pulse oximetry Branch Systolic blood 2020-09-11 14:01:00 124 mm[Hg] Univer sity of pressure [facility] Diastolic blood 2020-09-11 14:01:00 73 mm[Hg] Unive rsity of pressure [facility] Heart rate 2020-09-11 14:01:00 85 /min Universi ty of [place] [facility] [place] Body temperature 2020-09-11 14:01:00 36.28 [place] Univ ersity of [facility] Respiratory rate 2020-09-11 14:01:00 18 /min Univ ersity of [place] [facility] [place] Body height 2020-09-11 14:01:00 167.6 cm Universi ty of [place] [facility] [place] Body weight 2020-09-11 14:01:00 83.28 kg Universi ty of [place] [facility] [place] BMI 2020-09-11 14:01:00 29.63 kg/m2 Universi ty of [place] [facility] [place] Oxygen saturation in 2020-09-11 14:01:00 98 /min University of Arterial blood by [facility] Pulse oximetry Branch Procedures Procedure Date / Time Performing Clinician Source Performed ASSIGNMENT OF BENEFITS 2020-12-06 14:49:44 Doctor Unassigned, No [facility] DME/SUPPLY JUSTIFICATION 2020-11-15 05:01:00 Doctor Unassigned, No [facility] VACCINATIONS - CONSENTS, 2020-09-20 05:01:00 Doctor Unassigned, No [facility] ELIGIBILITY, HISTORY Name Medical [facility] Encounters Start End Encounter Admission Attending Care Care Encounter Source Date/Time Date/Time Type Type Clinicians Facility Department ID 2021-01-15 2021-01-15 Outpatient R OG PURI [facility] [id number] Univers 10:20:00 10:20:00 SARA PURISamuel itjuanjose [facility] 2020-12-09 2020-12-09 Outpatient R SARA PURISamuel [facility] [id number] Univers 19:30:00 19:30:00 OG PURI itjuanjose [facility] 2020-12-09 2020-12-09 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 2.840.114 [id number] Univers 14:11:49 16:41:49 Visit PrashantyonisneoYurigonzalo Pisano [place] 350.1.13. 10 ity of [place] 4.2.7.2.686 [facility] [phone] [facility] 193 Branch 2020-12-06 2020-12-06 Laboratory Only, [facility] Test [facility] 1.2.840. 114 [id number] Univers 09:55:41 10:10:41 Only Amber uYrigonzalo Pisano [place] 350.1.13. 10 ity of [place] 4.2.7.2.686 [facility] [phone] [facility] 353 Branch 2020-12-06 2020-12-06 Outpatient R [facility] [id number] Univers 10:00:00 10:00:00 ity of [facility] 2020-12-06 2020-12-06 Orders Doctor CHRISTENSEN 1.2.840.114 [id number] Univers 00:00:00 00:00:00 Only Unassigned, [place] 350.1.13.10 ity of [place] [facility] 4.2.7.2.686 Rolando as [phone] [facility] 009 Branch 2020-11-15 2020-11-15 Orders Doctor CHRISTENSEN 1.2.840.114 [id number] Univers 00:00:00 00:00:00 Only Unassigned, [place] 350.1.13.10 ity of [place] [facility] 4.2.7.2.686 Rol[place] as [phone] [facility] 009 Branch 2020-10-30 2020-10-30 [facility] 1.2.263.542 [id number] Univers 11:36:32 11:56:32 Visit Og [place] 350.1.13.10 ity of [place] 4[place]2.7.2.686 [place] [phone] Pa dical nal 085 [facility] 2020-10-30 2020-10-30 Outpatient R YURI PURIHIL [facility] [id number] Univers 11:40:00 11:40:00 ATANASOV, STRAHIL ity [facility] 2020-09-25 2020-09-25 Outpatient R YURI PURITNL [facility] [id number] Univers 19:30:00 19:30:00 AMBER STRAHIL ity [facility] 2020-09-25 2020-09-25 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 2.840.114 [id number] Univers 15:15:54 17:45:54 Visit Og Puri 350.1.13. 10 ity of [place] 4.2.7.2.686 [place] [phone] [facility] 193 [place] 2020-09-20 2020-09-20 Orders Doctor FERMIN 1.2.840.114 [id number] Univers 00:00:00 00:00:00 Only Unassigned, [place] 350.1.13.10 ity of [place] [facility] 4.2.7.2.686 [place] [phone] [address] 2020-09-11 2020-09-11 [facility] 1.2.133.319 [id number] Univers 08:48:47 09:42:06 Visit Saral Norris [place] 350.1.13.10 ity of [place] 4[place]2.7.2.[place] [phone] Pa dical nal 085 [facility] 2020-09-11 2020-09-11 Outpatient R AMBER STRAHIL [facility] [id number] Univers 09:30:00 09:30:00 ATANASOV, STRAHIL ity [facility] 2018-07-22 2018-07-23 Inpatient UR Clem [facility].01 [id number] [facility] 16:29:00 22:36:00 Tr Gonzalez [facility] Results Test Description Test Time Test Comments Results Result Comments Source SURG 2018-07-27 12:56:00 --------RUN DATE: 07/27/18 [facility] - LAB *LIVE* PAGE 1 RUN TIME: 1256 Specimen Inquiry RUN USER: INTERFACE --------PATIENT: JAGDISH CHRISTENSEN V LOC: Alex U #: [id number] AGE/SX: 58/M ROOM: [facility] RE07/22/18[facility] DR: Tr Nj MD : 64 BED: 1 DIS: 07/23/18 STATUS: DIS Lexi TLOC: -------- SPEC #: [id number] RECD: 07/26/186134 STATUS: SERA CALDERÓN #: [id number] PIOTR: 07/23/[address] [facility] [address]: Tr Nj MD ENTERED: 07/26/18 SP TYPE: SURG OTHR DR: No Primary or Family Physician Self Referred Surinder Montalvo MDORDERED: SURG PATH LVL 3 COPIES TO: No Primary [place] [address] [place] [address] [email or web address] [address] [place] [address] HISTOLOGY: TISSUE ID BLK PCS MEGHNA LEV PROCEDURE DISPOSITION ____ ___ ___ ___ GALLBLADDER, NO A 1-2 1 PROCEDURES: SURG PATH LVL 3 (07/26/18) TISSUES: A. GALLBLADDER, NOS - GALLBLADDER CLINICAL HISTORY ABD PAIN CPT CODES CPT CODE(S): 17803 , , , , , , CONTINUED ON NEXT PAGE --------RUN DATE: 07/27/18 [facility] - LAB *LIVE* PAGE 2 RUN TIME: 1256 Specimen Inquiry RUN USER: INTERFACE --------SPEC #: [id number] PATIENT: JAGDISH CHRISTENSEN V #[id number] (Continued) FINAL DIAGNOSIS Gallbladder, laparoscopic cholecystectomy: MILD [...] x 0.7 x 0.3 cm in aggregate. Plate Mounter section submitted as A. /ba/pdb Grossing performed at [facility] Pathology, [address] [facility] [address], [address], [place] [address]. Home Demonstrator: Finesse Fuentes M.D. MICROSCOPIC DESCRIPTION Gallbladder. Sections demonstrate gallbladder wall with glandular mucosa. Focal dilated Rokitansky-Aschoff sinuses are identified. There is mild patchy chronic inflammation in the wall of the gallbladder. There is no evidence of dysplasia or malignancy. /cm Signed SIGNATURE ON FILE Delores Arellano 07/27/18 3616 -------- END OF REPORT COMPREHENSIVE METABOLIC PANEL [...] ALKP) 81 Unit/L 50-136 N GLUCOSE BEDSIDE [id number] 16:44:00 Test Item Value Reference Range Interpretation Comments GLUCOSE BEDSIDE TESTING (test code 147 mg/dL 70-110 H = GLUBED) CBC W/AUTO [id number] 16:07:00 Test Item Value Reference Range Interpretation [...] = NO DIFF/SCN CRITERIA MDIFF) GLUCOSE BEDSIDE [id number] 13:00:00 Test Item Value Reference Range Interpretation Comments GLUCOSE BEDSIDE TESTING (test code 143 mg/dL 70-110 H = GLUBED) GLUCOSE BEDSIDE [id number] 10:06:00 Test Item Value Reference Range Interpretation Comments GLUCOSE BEDSIDE TESTING (test code 113 mg/dL 70-110 H = GLUBED) GLUCOSE BEDSIDE [id number] 07:51:00 Test Item Value Reference Range Interpretation Comments GLUCOSE BEDSIDE TESTING (test code 131 mg/dL 70-110 H = GLUBED) COMPREHENSIVE METABOLIC [id number] 07:11:00 Test Item Value Reference Range Interpretation [...] TOTAL (test code = ALKP) COMPREHENSIVE METABOLIC [id number] 06:59:00 Test Item Value Reference Range Interpretation [...] Unit/L 50-136 code = ALKP) CBC W/AUTO [id number] 06:53:00 Test Item Value Reference Range Interpretation [...] DIFF/SCN CRITERIA MDIFF) - XR CHEST 1 [id number] 23:12:00 Name: JAGDISH CHRISTENSEN [place] : 1960 Age/S: 58 / M [id number] Unit #: [id number] Loc: [place] [address] Phys: Tr Nj MD Acct: [id number] Dis Date: Status: ADM IN PHONE #: [phone] Exam Date: 07/22/2018 2300 FAX #: Reason: FOR SURGERY IN AM. EXAMS: CPT: [id number] XR CHEST 1 V 36878 Fluoro Time: DAP (Gy m2): Air Kerma (mGy): HISTORY: Chest pain. 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 There is mild cardiomegaly. No vascular congestion. The lungs are clear of focal consolidation. No effusion, pneumothorax, oracute osseous abnormality. IMPRESSION: 1. Heart size is upper normal. No focal consolidation. at 2312 Reported and signed by: Yovani Chowdhury M.D. CC: Tr Nj MD PAGE 1 Signed Report Name: JAGDISH CHRISTENSEN [place] : 1960 Age/S: 58 / M [address] Unit #: [id number] Loc: [place] [address] Phys: Tr Nj MD Acct: [id number] Dis Date: Status: ADM IN PHONE #: [phone] Exam Date: 07/22/2018 2300 FAX #: Reason: FOR SURGERY IN AM. EXAMS: CPT: [id number] XR CHEST 1 V 65478 Fluoro Time:DAP (Gy m2): Air Kerma (mGy): (Continued) Technologist: Evelia Lucio RT(R)(CT) Trnscb Date/Time:07/22/2018 (2311) [email or web address] Orig Print D/T: S: 07/22/2018 (2314) PAGE 2 Signed Report- CT ABD PELVIS [id number] 19:50:00 Name: JAGDISH CHRISTENSEN [place] : 1960 Age/S: 58 / M [address] Unit #: [id number] Loc: [place] [address] Phys: Tr Nj MD Acct: [id number] Dis Date: Status: ADM IN PHONE #: [phone] Exam Date: 07/22/2018 1928 FAX #: Reason: Abd pain EXAMS: CPT: [id number] CT ABD PELVIS W/CONT [address]45 CT ABDOMEN AND PELVIS WITH IV CONTRAST [...] Location: B2. FINDINGS: Mild atelectasis present in bothlung bases. The heart size is normal. Coronary artery calcifications. Epicardial pacemaker leads. Sternotomy wires. The gallbladder is distended. There are few small gallstones in the neck of the gallbladder. There may be a small amount of pericholecystic fluid and minimal inflammatory changes. Mild diffuse low attenuation seen throughout the liver suggestive of cyst steatosis. No focal hepatic lesion. Spleen, pancreas and adrenal glands are unremarkable. Both kidneys are similar in size, shape and e nhancement without evidence of hydronephrosis. There are at [...] 1 Signed Report (CONTINUED) Name: JAGDISH CHRISTENSEN V [facility] : 1960 Age/S: 58 / M [address] Unit #: [id number] Loc: [place] [address] Phys: Tr Nj MD Acct: [id number] Dis Date: Status: ADM IN PHONE #: [phone] Exam Date: 07/22/20181927 FAX #: Reason: Abd pain EXAMS: CPT: [id number] CT ABD PELVIS W/CONT 77223 (Continued) Cholelithiasis. Minimal inflammatory changes and probable pericholecystic fluid concerning for acute cholecystitis. A right upper quadrant ultrasound may be helpful for further assessment. Normal appendix. Multiple nonobstructing right renal stones. at 1950 Reported and signed by: Liborio Box M.D. CC: Tr Nj MD Technologist:Dorian Escobedo RT(R)(CT); .. CTDI: DLP: Trnscb Date/Time: 07/22/2018 (1949) [email or web address] Orig Print D/T: S: 07/22/2018 (1952) PAGE 2 Signed ReportLACTIC [id number] 18:23:00 Test Item Value Reference Range Interpretation Comments LACTIC ACID (test code = LACT) 1.4 mmol/L 0.4-2.0 N COMPREHENSIVE METABOLIC [id number] 18:09:00 Test Item Value Reference Range Interpretation [...] = LDL/HDL) 1.23 Ratio 1.48-3.22 Avg L [id number] 18:09:00 Test Item Value Reference Range Interpretation Comments PHOSPHOROUS (test code = PHOS) 2.5 MG/DL 2.5-4.9 N RULE OUT [place] [id number] 18:09:00 Test Item Value Reference Range Interpretation [...] nume rical results may dustin yby method. [id number] 18:09:00 Test Item Value Reference Range Interpretation Comments LIPASE (test code = LIP) 457 Unit/L 114-286 H [id number] 18:09:00 Test Item Value Reference Range Interpretation Comments MAGNESIUM (test code = MAG) 2.0 MG/DL 1.8-2.4 N COMPREHENSIVE METABOLIC [id number] 18:05:00 Test Item Value Reference Range Interpretation [...] (test code = LDL/HDL) Ratio 1.48-3.22 Avg [id number] 18:05:00 Test Item Value Reference Range Interpretation Comments PHOSPHOROUS (test code = PHOS) MG/DL 2.5-4.9 RULE OUT [place] [id number] 18:05:00 Test Item Value Reference Range Interpretation Comments CREATINE KINASE (CK) (test code = CK) Unit/L 26-192 TROPONIN-I (test code = TROPI) NG/ML 0.000-0.045 [id number] 18:05:00 Test Item Value Reference Range Interpretation Comments LIPASE (test code = LIP) Unit/L 114-286 [id number] 18:05:00 Test Item Value Reference Range Interpretation Comments MAGNESIUM (test code = MAG) MG/DL 1.8-2.4 PROTHROMBIN [id number] 17:54:00 Test Item Value Reference Range Interpretation Comments PT PATIENT (test code = PTP) 11.2 SECONDS 9.3-12.9 N INTERNATIONAL NORMAL RATIO 0.97 INR Unit 0.8-1.2 N (test code = INR) CBC W/AUTO [id number] 17:48:00 Test Item Value Reference Range Interpretation [...]
[2022-04-12 14:41] LABS: Absolute Lymphocytes (CBC) 1.5 K/uL (0.7-4.9); Hematocrit 44.4 % (39.6-49.0); Lymphocytes % 22.1 % (15.3-44.8); MCV 83.6 fL (80-100); MPV 8.4 fL (7.6-11.3); RBC Red Blood Cell Count 5.31 M/uL (4.33-5.43)
[2022-04-12 14:48] LABS: SARS-CoV-2 Antigen Rapid Res Negative (Negative)
[2022-04-12 14:54] LABS: Protime INR 1.37
[2022-04-12 15:01] LABS: Albumin 3.3 g/dL (3.4-5.0); Bilirubin Direct 0.8 mg/dL (0-0.2); Bilirubin Total 2.2 mg/dL (0.2-1.0); Potassium 4.3 mmol/L (3.5-5.1); Protein, Total 7.3 g/dL (6.4-8.2); Troponin High Sensitivity 40.8 pg/mL (<58.9)
--- NOTE | 2022-04-12 15:02 | RAD REPORT ---
EXAM DESCRIPTION: RAD - Chest Single View - 04/12/2022 2:55 pm CLINICAL HISTORY: SOB Chest pain. COMPARISON: Chest Single View dated 11/15/2021; Chest Pa And Lat (2 Views) dated 08/25/2019 FINDINGS: Portable technique limits examination quality. The lungs are grossly clear. The heart is moderately enlarged. Sternotomy wires present. IMPRESSION: No acute intrathoracic process suspected.
[2022-04-12] MEDS ORDERED: FUROSEMIDE 40 MG/4 ML VIAL ONE ×2 (15:10→18:24)
--- NOTE | 2022-04-12 15:26 | RAD REPORT ---
EXAM DESCRIPTION: CT - Abdomen Pelvis Wo Contrast - 04/12/2022 3:18 pm CLINICAL HISTORY: Abdominal pain. abdmominal distention COMPARISON: [place] Protocol dated 10/22/2021 TECHNIQUE: CT imaging of the abdomen and pelvis was performed without contrast. Solid organ, bowel a nd vascular assessment is limited due to lack of IV and oral contrast. All CT scans are performed using dose optimization technique as appropriate and may include automated exposure control or mA/KV adjustment according to patient size. FINDINGS: Subsegmental atelectasis is seen in the left lung base. Small bilateral pleural effusions. Cholecystectomy.No pathologic biliary dilatation seen. The liver, spleen, pancreas adrenal glands are normal. Small stones are present both kidneys without hydronephrosis. Mild free fluid in the abdomen and pelvis. No bowel obstruction or free air. The appendix is normal. The osseous structures are within normal limits. IMPRESSION: Bilateral nephrolithiasis is noted without hydronephrosis. Mild free fluid in the abdomen and small bilateral pleural effusions. A limited non-contrast examination was performed as detailed.
--- NOTE | 2022-04-12 19:25 | EDPHYS ---
Physician Documentation [facility] Name: Ivory Chery Age: 61 yrs Sex: Male : 1960 Arrival Date: 04/12/2022 Time: 13:26 Bed 8 Private MD: ED Physician Robbie Hanson HPI: 04/12 13:49 This 61 yrs old Male presents to ER via Ambulatory with complaints of jmm Shortness Of Breath. 13:49 The patient has shortness of breath at rest, with light activity. Onset: The jmm symptoms/episode began/occurred gradually, 1 week(s) ago. The patient's shortness of breath is aggravated by exertion, light activity. Is a 61-year-old male with history of coronary artery disease, diabetes mellitus, hyperlipidemia, hypertension the presents emerged part with complaints of generalized swelling, shortness of breath. Denies chest pain. Also complains of abdominal swelling. Historical: - Allergies: 13:47 No Known Allergies; ko1 - PMHx: 13:47 angina pectoris; CAD; Diabetes - NIDDM; Gout; Hyperlipidemia; Hypertension; ko1 - Immunization history:: Adult Immunizations up to date. - Social history:: Smoking status: Patient denies any tobacco usage or history of. ROS: 13:49 Constitutional: Negative for fever, chills, and weight loss, Cardiovascular: Negative jmm for chest pain, palpitations, and edema, Respiratory: Negative for shortness of breath, cough, wheezing, and pleuritic chest pain. 13:49 Abdomen/GI: Positive for 13:49 All other systems are negative. Exam: 13:49 Constitutional: This is a well developed, well nourished patient who is awake, alert, jmm and in no acute distress. Head/Face: atraumatic. Eyes: EOMI, no conjunctival erythema appreciated ENT: Moist Mucus Membranes Neck: Trachea midline, Supple Chest/axilla: Normal chest wall appearance and motion. Cardiovascular: Regular rate and rhythm. No edema appreciated Respiratory: Normal respirations, no respiratory distress appreciated 13:49 Abdomen/GI: Inspection: distension, Bowel sounds: normal. 13:49 Musculoskeletal/extremity: ROM: intact in all extremities, Bilateral edema noted, full dorsalis pedis pulse, compartments are soft, neurovascular intact. 13:49 Skin: Appearance: Color: normal in color. 13:49 Neuro: Orientation: is normal, Mentation: is normal, Memory: is normal. 13:49 Psych: Behavior/mood is pleasant, cooperative. Vital Signs: 13:45 BP 132 / 82; Pulse 102; Resp 24; Temp 97; Pulse Ox 99% on R/A; Weight 84.82 kg; Height ko1 5 ft. 6 in. (167.64 cm); Pain 0/10; 15:14 BP 109 / 87; Pulse 95; Resp 24; Pulse Ox 95% on R/A; ph 16:30 BP 120 / 88; Pulse 95; Resp 22; Pulse Ox 95% on R/A; ph 17:30 BP 115 / 84; Pulse 92; Resp 20; Pulse Ox 96% ; ph 18:42 BP 104 / 75; Pulse 90; Resp 24; Pulse Ox 96% on R/A; ph 19:14 BP 119 / 96; Pulse 93; Resp 22; Pulse Ox 94% on R/A; Pain 0/10; ke1 13:45 Body Mass Index 30.18 (84.82 kg, 167.64 cm) ko1 MDM: 13:49 Patient medically screened. chely 19:21 Data reviewed: vital signs, nurses notes. Consideration of Admission/Observation. I tricia considered the following discharge prescriptions or medication management in the emergency department Medications were administered in the Emergency Department. See MAR. Historians other than the Patient: . Counseling: I had a detailed discussion with the patient and/or guardian regarding: the historical points, exam findings, and any diagnostic results supporting the discharge/admit diagnosis, lab results, radiology results, the need for outpatient follow up, to return to the emergency department if symptoms worsen or persist or if there are any questions or concerns that arise at home. ED course: Patient is alert nontoxic in appearance in the ED not hypoxic. Patient advised to increase furosemide dosing. Otherwise given strict return precautions. Patient understood and agrees plan of care.. 04/12 14:03 Order name: Basic Metabolic Panel [facility] 04/12 14:03 Order name: CBC with Diff [facility] 04/12 14:03 Order name: LFT's [facility] 04/12 14:03 Order name: Magnesium [facility] 04/12 14:03 Order name: NT PRO-BNP [facility] 04/12 14:03 Order name: PT-INR [facility] 04/12 14:03 Order name: Troponin HS [facility] 04/12 14:03 Order name: SARS RAPID [facility] 04/12 14:45 Order name: CBC with Automated Diff; Complete Time: 14:45 EDMS 04/12 14:48 Order name: SARS-COV-2 Antigen Rapid; Complete Time: 14:50 EDMS 04/12 14:54 Order name: Protime (+INR); Complete Time: 14:54 EDMS 04/12 15:02 Order name: Basic Metabolic Panel; Complete Time: 15:03 EDMS 04/12 15:02 Order name: Liver (Hepatic) Function; Complete Time: 15:03 EDMS 04/12 15:02 Order name: Troponin High Sensitivity; Complete Time: 15:03 EDMS 04/12 14:03 Order name: XRAY Chest (1 view) [facility] 04/12 14:03 Order name: EKG; Complete Time: 14:04 [facility] 04/12 14:03 Order name: Cardiac monitoring; Complete Time: 15:04 [facility] 04/12 14:03 Order name: EKG - Nurse/Tech; Complete Time: 15:04 [facility] 04/12 14:03 Order name: IV Saline Lock; Complete Time: 14:41 [facility] 04/12 14:03 Order name: Labs collected and sent; Complete Time: 14:41 [facility] 04/12 14:03 Order name: O2 Per Protocol; Complete Time: 14:28 [facility] 04/12 14:03 Order name: O2 Sat Monitoring; Complete Time: 14:28 [facility] 04/12 15:02 Order name: NT PRO-BNP; Complete Time: 15:03 EDVT 04/12 15:02 Order name: Magnesium; Complete Time: 15:03 EDVT 04/12 15:02 Order name: RAD; Complete Time: 15:03 EDMS 04/12 15:03 Order name: CT Abd/Pelvis - Without Contrast [facility] 04/12 15:27 Order name: CT; Complete Time: 15:31 EDMS Administered Medications: 15:20 Drug: Lasix (furosemide) 40 mg Route: IVP; Site: right antecubital; ph 18:48 Follow up: Response: No adverse reaction ph 18:28 Drug: Lasix (furosemide) 40 mg Route: IVP; Site: right antecubital; ll1 18:48 Follow up: Response: No adverse reaction ph Disposition Summary: 04/12/22 19:25 Discharge Ordered Location: Home [facility] Condition: Stable [facility] Diagnosis - Edema [facility] - Renal insufficiency [facility] Followup: m - With: Private Physician - When: 1 - 2 days - Reason: Recheck today's complaints, Continuance of care, Re-evaluation by your physician Followup: [facility] - With: Angel Julio MD - When: 1 - 2 days - Reason: Recheck today's complaints, Continuance of care, Re-evaluation by your physician Discharge Instructions: - Discharge Summary Sheet jm - Edema [facility] Forms: - Medication Reconciliation Form [facility] - Thank You Letter [facility] - Antibiotic Education [facility] - Prescription Opioid Use [facility] Prescriptions: - Lasix 20 mg Oral Tablet - take 2 tablet by ORAL route 2 times per day for 3 days; 20 tablet; Refills: 0, jmm Product Selection Permitted Signatures: Dispatcher [employer] Robbie Kurtz MD MD cha Mickail, Joel, PA PA jmm Hall, Patricia, RN RN ph Lewis, Lynsay, RN RN ll1 Megan Dejesus RN RN ko1
--- NOTE | 2022-04-12 19:25 | ER ---
Nurse's Notes [facility] Name: Ivory Chery Age: 61 yrs Sex: Male : 1960 Arrival Date: 04/12/2022 Time: 13:26 Bed 8 Private MD: Diagnosis: Edema;Renal insufficiency Presentation: 04/12 13:45 Chief complaint: Patient states: swelling for one week to both legs, belly is tight and ko1 swollen and my face is swelling also. I have heart problems and I take fluid pills.. Coronavirus screen: At this time, the client does not indicate any symptoms associated with coronavirus-19. Ebola Screen: No symptoms or risks identified at this time. Initial Sepsis Screen: Does the patient meet any 2 criteria? No. Patient's initial sepsis screen is negative. Does the patient have a suspected source of infection? No. Patient's initial sepsis screen is negative. Risk Assessment: Do you want to hurt yourself or someone else? Patient reports no desire to harm self or others. Onset of symptoms is unknown. 13:45 Method Of Arrival: Ambulatory ko1 13:45 Acuity: TRENT 2 ko1 Triage Assessment: 13:47 General: Appears in no apparent distress. uncomfortable, Behavior is calm, cooperative, ko1 appropriate for age. Pain: Denies pain. Respiratory: Reports shortness of breath on exertion Onset: The symptoms/episode began/occurred gradually, the patient has moderate shortness of breath. Historical: - Allergies: 13:47 No Known Allergies; ko1 - PMHx: 13:47 angina pectoris; CAD; Diabetes - NIDDM; Gout; Hyperlipidemia; Hypertension; ko1 - Immunization history:: Adult Immunizations up to date. - Social history:: Smoking status: Patient denies any tobacco usage or history of. Screenin:01 [facility] ED Fall Risk Assessment (Adult) History of falling in the last 3 months, ph including since admission No falls in past 3 months (0 pts) Confusion or Disorientation No (0 pts) Intoxicated or Sedated No (0 pts) Impaired Gait No (0 pts) Mobility Assist Device Used No (0 pt) Altered Elimination No (0 pt) Score/Fall Risk Level 0 - 2 = Low Risk Oriented to surroundings, Maintained a safe environment, Hourly rounding (assess needs \T\ fall precautionary measures) done. Abuse screen: Denies threats or abuse. Denies injuries from another. Nutritional screening: No deficits noted. Tuberculosis screening: No symptoms or risk factors identified. Assessment: 15:12 General: Appears in no apparent distress. comfortable, well groomed, Behavior is calm, ph cooperative, appropriate for age, Denies fever, feeling ill. Pain: Denies pain. Neuro: Level of Consciousness is awake, alert, obeys commands, Oriented to person, place, time, situation. Cardiovascular: Reports shortness of breath, Denies chest pain, nausea, Capillary refill < 3 seconds in bilateral fingers Patient's skin is warm and dry. Cardiovascular: Edema is 3+ to waist. Cardiovascular: Edema is 2+ to right forearm, right wrist, right hand, right fingers, left midcalf, left ankle, left forearm, left wrist, left hand, left fingers, right midcalf and right ankle. Respiratory: Airway is patent Respiratory effort is even, unlabored, Respiratory pattern is tachypnea. GI: Abdomen is round distended, Patient currently denies abdominal pain, diarrhea, nausea, vomiting. Derm: Skin is healthy with good turgor, Skin is pink, warm \T\ dry. Musculoskeletal: Circulation, motion, and sensation intact. Range of motion: intact in all extremities. 15:15 Reassessment: Pt taken to CT. ph 16:00 Reassessment: Patient appears in no apparent distress at this time. Patient and/or ph family updated on plan of care and expected duration. Pain level reassessed. Patient is alert, oriented x 3, equal unlabored respirations, skin warm/dry/pink. 17:00 Reassessment: Patient appears in no apparent distress at this time. Patient and/or ph family updated on plan of care and expected duration. Pain level reassessed. Patient is alert, oriented x 3, equal unlabored respirations, skin warm/dry/pink. 19:14 Reassessment: Patient states feeling better. Patient states symptoms have improved. ke1 Respiratory: Respiratory effort is even, unlabored, Respiratory pattern is regular, symmetrical. Vital Signs: 13:45 BP 132 / 82; Pulse 102; Resp 24; Temp 97; Pulse Ox 99% on R/A; Weight 84.82 kg; Height ko1 5 ft. 6 in. (167.64 cm); Pain 0/10; 15:14 BP 109 / 87; Pulse 95; Resp 24; Pulse Ox 95% on R/A; ph 16:30 BP 120 / 88; Pulse 95; Resp 22; Pulse Ox 95% on R/A; ph 17:30 BP 115 / 84; Pulse 92; Resp 20; Pulse Ox 96% ; ph 18:42 BP 104 / 75; Pulse 90; Resp 24; Pulse Ox 96% on R/A; ph 19:14 BP 119 / 96; Pulse 93; Resp 22; Pulse Ox 94% on R/A; Pain 0/10; ke1 13:45 Body Mass Index 30.18 (84.82 kg, 167.64 cm) ko1 Vitals: 18:42 Cardiac Rhythm Assessment Sinus rhythm. ph ED Course: 13:26 Patient arrived in ED. mr 13:47 Triage completed. ko1 13:47 Arm band placed on left wrist. Patient notified of wait time. ko1 13:48 Boy Dallas PA is PHCP. jmm 13:48 Robbie Hanson MD is Attending Physician. jm 13:53 Grecia Castaneda, RN is Primary Nurse. ph 14:41 SARS RAPID Sent. bc6 14:41 Basic Metabolic Panel Sent. bc6 14:41 CBC with Diff Sent. bc6 14:41 LFT's Sent. bc6 14:41 Magnesium Sent. bc6 14:41 NT PRO-BNP Sent. bc6 14:41 PT-INR Sent. bc6 14:41 Troponin HS Sent. bc6 14:41 Inserted saline lock: 20 gauge in right antecubital area, using aseptic technique. bc6 15:02 Patient has correct armband on for positive identification. Bed in low position. Call ph light in reach. Side rails up X2. Client placed on continuous cardiac and pulse oximetry monitoring. NIBP monitoring applied. Door closed. Noise minimized. Warm blanket given. 19:24 Angel Julio MD is Referral Physician. [facility] 19:34 No provider procedures requiring assistance completed. IV discontinued, intact, ke1 bleeding controlled, No redness/swelling at site. Pressure dressing applied. Administered Medications: 15:20 Drug: Lasix (furosemide) 40 mg Route: IVP; Site: right antecubital; ph 18:48 Follow up: Response: No adverse reaction ph 18:28 Drug: Lasix (furosemide) 40 mg Route: IVP; Site: right antecubital; ll1 18:48 Follow up: Response: No adverse reaction ph Medication: 15:03 VIS not applicable for this client. ph Outcome: 19:25 Discharge ordered by . mariann 19:34 Discharged to home ambulatory, with significant other. ke1 19:34 Condition: stable 19:34 Discharge instructions given to patient, significant other, Instructed on discharge instructions, follow up and referral plans. medication usage, Demonstrated understanding of instructions, follow-up care, medications, Prescriptions given X 1. 19:34 Patient left the ED. ke1 Signatures: Boy Dallas PA PA jmm Russell, Dixie CastanedaGrecia, RN RN Soto Chen RN RN 1 Erasmo Little RN RN ke1 Megan Dejesus RN RN ko1 Melyssa Nino bc6 Corrections: (The following items were deleted from the chart) 15:16 15:02 Respiratory: ph ph 18:46 18:42 BP 104 / 75; Pulse 90bpm; Resp 18bpm; Pulse Ox 96% RA; ph ph
[2022-04-12 20:48] VITALS: TEMP 97
[2022-04-12 20:54] VITALS: BP 119/96; O2SAT 94
--- NOTE | 2022-04-14 17:19 | EKG ---
Test Date: 2022-04-12 Test Time: 14:54:04 Electrocardiogram Technician: PH MEASUREMENT RESULTS: Intervals: Rate: 96 IN: 210 QRSD: 126 QT: 364 QTc: 459 [place]: P: 67 IN: 210 QRS: -71 T: 81 INTERPRETIVE STATEMENTS: Sinus rhythm with 1st degree AV block Possible Left atrial enlargement Left axis deviation Nonspecific intraventricular block Cannot rule out Anterior infarct, age undetermined Abnormal ECG Compared to ECG 11/15/2021 19:57:15 First degree AV block now present Myocardial infarct finding now present T-wave abnormality no longer present Electronically Signed On 04-14-22 17:13:06 SOLE [employer]OLDER by Vishal Tyler
== END 2022-04-12 19:34 | disposition home or self-care (01) ==
LOC: ER 13:25
DX: R60.9 Edema, unspecified (principal); N28.9 Disorder of kidney and ureter, unspecified; E11.9 Type 2 diabetes mellitus without complications; I10 Essential (primary) hypertension; Z20.822 Contact with and (suspected) exposure to COVID-19
CPT/HCPCS: 85025; 80048; 36415; 83735; 85610; 80076; 84484; 83880; 74176; 71045; 96374; 99284; 87811; J1940 ×2; 93005